=== PATIENT | male | born 1945 ===

== ENCOUNTER 2020-04-25 07:57 | Outpatient (REF) | payer MEDICARE, SELFPAY | END 2020-04-25 07:58 | disposition home or self-care (01) | LOC: HO.HAP 07:57 | PROVIDERS: Visit Provider Internal Medicine | DX: Z13.89 Encounter for screening for other disorder (principal) | CPT/HCPCS: 92700 ==

== ENCOUNTER → 2020-08-06 09:21 | Outpatient (BNV) | payer MEDICARE, SELFPAY | PROVIDERS: Visit Provider Internal Medicine Medical Oncology | DX: I82.403 Acute embolism and thrombosis of unspecified deep veins of lower extremity, bilateral (principal) | CPT/HCPCS: 99212; 99213; 99214 ==

== ENCOUNTER 2021-01-08 10:20 | Outpatient (REF) | payer MEDICARE, SELFPAY | END 2021-01-08 10:21 | disposition home or self-care (01) | LOC: HO.LAB 10:20 | PROVIDERS: Internal Medicine; Visit Provider Internal Medicine Medical Oncology | DX: Z20.822 Contact with and (suspected) exposure to COVID-19 (principal) | CPT/HCPCS: C9803; U0003; U0005 ==

== ENCOUNTER 2021-06-10 09:54 | Outpatient (REF) | payer MEDICARE, SELFPAY ==
--- NOTE | ~2021-06-10 | US_ITS ---
EXAMINATION: US VENOUS ULTRASOUND WITH DOPPLER LOWER EXTREMITY, BILATERAL CLINICAL INFORMATION: Swelling and skin changes. Follow-up DVT. COMPARISON: Previous exam most recent March 2017. TECHNIQUE: Ultrasound of the deep veins is performed from the hip to the calf with compression sonography and color and pulse Doppler assessment. Spectral analysis with color-flow imaging is performed. FINDINGS: RIGHT: There is linear echogenic material seen in the right common femoral vein suggestive of chronic changes from DVT. The visualized right greater saphenous vein in the upper thigh is patent. The visualized profunda in the upper thigh is patent. The right superficial femoral vein is narrowed in the proximal thigh but patent. The right superficial femoral vein is duplicated in the mid thigh and lower. One mid superficial femoral vein appears occluded and filled with echogenic material suggestive of old DVT. The other duplicated mid and distal superficial femoral vein demonstrates linear echogenic material suggestive of chronic changes of DVT. There is linear echogenic material in the popliteal vein suggestive of chronic changes from DVT. The right posterior tibial and peroneal veins are patent. LEFT: There is linear echogenic material seen in the left common femoral vein suggestive of chronic changes from DVT. The left greater saphenous vein in the upper thigh is patent. The visualized profunda in the upper thigh is patent. There is linear echogenic material seen in the left superficial femoral vein in the upper thigh suggestive of chronic changes from DVT. The left superficial femoral vein in the mid thigh appears narrowed but patent. The superficial femoral vein in the distal thigh demonstrates linear echogenic material suggestive of chronic changes from DVT. The left popliteal vein is patent. The visualized left posterior tibial and peroneal veins in the calf appear patent. US/US venous duplex LE BI IMPRESSION: Chronic changes of DVT in the bilateral common femoral and superficial femoral veins and the right popliteal vein. No acute DVT is seen.
== END 2021-06-10 09:55 | disposition home or self-care (01) ==
LOC: HO.US 09:54
PROVIDERS: Visit Provider Internal Medicine Medical Oncology
DX: Z86.718 Personal history of other venous thrombosis and embolism (principal)
CPT/HCPCS: 93970

== ENCOUNTER → 2022-01-01 14:17 | Outpatient (BNVA) | payer MEDICARE, SELFPAY | PROVIDERS: PCP Internal Medicine; Visit Provider Surgery Vascular Surgery | DX: Z86.718 Personal history of other venous thrombosis and embolism (principal); Z79.01 Long term (current) use of anticoagulants | CPT/HCPCS: 99202 ==

== ENCOUNTER 2022-01-13 14:01 | Outpatient (REF) | payer OTHER, SELFPAY ==
[2022-01-13 15:18] LABS: Blood Urea Nitrogen 20 mg/dL (9-16); Estimated Glomerular Filt Rate > 60
== END 2022-01-13 14:02 | disposition home or self-care (01) ==
LOC: HO.LAB 14:01
PROVIDERS: Visit Provider Surgery Vascular Surgery
DX: I82.409 Acute embolism and thrombosis of unspecified deep veins of unspecified lower extremity (principal)
CPT/HCPCS: 36415; 82565; 84520

== ENCOUNTER 2022-01-16 08:39 | Outpatient (REF) | payer OTHER, SELFPAY ==
--- NOTE | ~2022-01-16 | CT_ITS ---
STUDY PERFORMED: CTA ABDOMEN AND PELVIS WITHOUT AND WITH CONTRAST HISTORY: Lower extremity swelling and pain. History of bilateral lower extremity deep venous thrombosis DESCRIPTION: Routine abdomen and pelvis CTA protocol with contrast was performed. 80 mL of Omnipaque 350 was administered. 3D POSTPROCESSING: Multiple 3-D angiographic images were processed from the initial data set by the [facility] under concurrent physician supervision. DOSE LOWERING TECHNIQUES: This CT examination was performed using dose optimization techniques as appropriate, variously including the following: - Automated exposure control - Adjustment of mA and/or kV according to patient size (this includes techniques or standardized protocols for targeted exams where dose is matched to indication/reason for exam; i.e. extremities or head) - Use of iterative reconstruction technique DLP: 284 mGycm. COMPARISON: CT scan from 05/10/2019 FINDINGS: VASCULAR: ABDOMINAL AORTA: Normal in caliber and patent. No evidence of aneurysm or stenosis. RIGHT LOWER EXTREMITY: Common iliac, external iliac, internal iliac and visualized femoral arteries are patent. LEFT LOWER EXTREMITY: Common iliac, external iliac, internal iliac and visualized femoral arteries are patent. CELIOMESENTERIC ARTERIES: Patent. RENAL ARTERIES: Patent. VENOUS: Arterial phase images are obtained and therefore venous opacification is limited. Note is made of a small, scarred down and calcified portions of the right external iliac vein, left common iliac vein and left external iliac vein consistent with chronic thrombosis. There are multiple collateral veins along the bilateral anterior and lateral abdominal wall NONVASCULAR: Lung Bases: Atelectasis in the right lung base. Liver, Gallbladder and Biliary Tree: The liver is normal in size, shape, and attenuation. No focal hepatic lesion or biliary ductal dilatation is present. Status post cholecystectomy Pancreas: Unremarkable. Spleen: Unremarkable. Adrenal Glands: Unremarkable. Kidneys and Ureters: The kidneys are normal in size, shape, and attenuation. No hydronephrosis, hydroureter, or calculi seen. No perinephric stranding. There is a simple cyst in the lower pole of the right kidney measuring 2.1 cm Bladder: Unremarkable. Gastrointestinal Tract: The small and large bowel are unremarkable. The appendix is unremarkable. Abdominal Wall: No significant hernia is appreciated. Lymph Nodes: Normal. Pelvic Viscera: Unremarkable. Osseous Structures: Old compression fracture with kyphoplasty cement is seen within the T12 vertebral body. 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 Arterial phase images demonstrates some mild scattered atherosclerotic plaque in the abdominal aorta with otherwise widely patent arterial flow throughout the abdomen and pelvis. 2. Venous structures are unopacified due to arterial phase of imaging. The right external iliac vein, left common iliac vein and left external iliac vein are small in size with calcification consistent with chronic thrombosis. Collateral veins are seen throughout the anterior abdominal wall. This is grossly unchanged in appearance compared to CT from 2019
[2022-01-16] MEDS: iohexoL 350 MG/ML 100 ML INFUS..BTL IV (09:19)
== END 2022-01-16 08:40 | disposition home or self-care (01) ==
LOC: HO.CT 08:39
PROVIDERS: Visit Provider Surgery Vascular Surgery
DX: I82.409 Acute embolism and thrombosis of unspecified deep veins of unspecified lower extremity (principal)
CPT/HCPCS: 74174; Q9967

== ENCOUNTER → 2022-01-27 15:32 | Outpatient (BNVA) | payer OTHER, SELFPAY | PROVIDERS: PCP Internal Medicine; Visit Provider Surgery Vascular Surgery | DX: I82.409 Acute embolism and thrombosis of unspecified deep veins of unspecified lower extremity (principal) | CPT/HCPCS: 99212 ==

== ENCOUNTER 2022-02-04 05:55 | Day surgery (SDC) | payer OTHER, SELFPAY ==
[2022-02-04] VITALS (10 sets, daily range): BP systolic 138–153; BP diastolic 63–76; PULSE 65–74; RESP 14–17; TEMP 36.2–36.6; O2SAT 94–98; BMI 35.3
[2022-02-04 06:42] LABS: MANUAL DIFF FLAG NO
[2022-02-04 06:44] LABS: Basophils Absolute Auto 0.1 X10*3/uL (0.0-0.2); Basophils Percent Auto 1.1 % (0-2); Eosinophils Absolute Auto 0.2 X10*3/uL (0.0-0.4); Eosinophils Percent Auto 3.8 % (0-4); Hemoglobin 13.1 g/dl (14.0-18.0); Imm Gran Abs Auto 0.01 X10*3/uL (0.00-0.03); Imm Gran Pct Auto 0.2 % (0.0-0.4); Lymphocytes Absolute Auto 1.8 X10*3/uL (1.2-4.9); Lymphocytes Percent Auto 38.2 % (20-40); Mean Corpuscular HGB Conc 32.8 g/dl (31.0-36.0); Mean Corpuscular Hemoglobin 29.6 pg (27.0-33.0); Mean Corpuscular Volume 90.5 fL (80.0-98.0); Mean Platelet Volume 10.3 fL (9.4-12.4); Monocytes Absolute Auto 0.6 X10*3/uL (0.1-1.2); Monocytes Percent Auto 11.7 % (2-11); Neutrophils Absolute Auto 2.1 x10*3/uL (2.0-8.3); Platelet Count 202 X10*3/uL (160-400); Red Blood Count 4.42 X10*6/uL (4.60-5.80); Red Cell Distribution Width 12.2 % (11.0-16.0); White Blood Count 4.7 X10*3/uL (4.8-10.8)
[2022-02-04] MEDS: 0.9 % Sodium Chloride 1,000 ML 100 ML IVCONT (06:54)
[2022-02-04 06:55] LABS: Glucose, Whole Blood 184 mg/dL (60-115)
[2022-02-04 06:57] LABS: Blood Urea Nitrogen 18 mg/dL (9-16); Creatinine Clr Calc Pharmacy 65.2; Estimated Glomerular Filt Rate > 60
--- NOTE | 2022-02-04 09:33 | W.PM.OPN ---
Operative Note Operative Note Date of Service: 02/04/22 Narrative: Angiogram report from [facility] Preoperative diagnosis: 1. Left iliac vein stenosis 2. DVT Postoperative diagnosis: Same Procedure: 1. Ultrasound-guided left common femoral vein access 2. vena cavogram and left iliac vein imaging 3. angioplasty and stent of left common iliac and external iliac vein Surgeon:Mark Serra M.D., FACS, RPVI Medicaid Billing Specialist:None Anesthesia: Local with moderate conscious sedation. Total intraservice moderate sedation time was 70 minutes. I monitored the patient's level of consciousness and physiologic status continuously throughout the procedure. Specimens:none Drains:none Estimated blood loss: Less than 10 ml Implant: Abre venous stent 14 x 120 Indications: very pleasant 76-year-old gentleman with a history of DVT and chronic venous insufficiency. He had evidence a CPAP 5 with healed ulceration. He has chronic swelling of the right and left lower extremity. On CT venogram was discovered that he had stenotic iliac system. He now presents for endovascular intervention. The patient has signed the informed consent after reviewing risks, complications, benefits, and alternatives previously discussed with the patient. The patient was given the opportunity to ask any additional questions or voice any concerns. All questions were answered to the patient's satisfaction. Procedure in detail: Patient was brought to the angiography suite prior to which a time-out was called for patient identification and site verification. Bilateral groins were prepped and draped in the standard surgical fashion. Under ultrasound guidance Left common femoral vein was punctured with micro puncture needle and wire. Subsequently a precision 5 [place]an sheath was then placed. Bentson wire was advanced to the level of the aorta. 5 [place] Flush catheter was brought up to the level of the inferior vena cava after some manipulation. Of note and 035 glidewire had to be used to advanced to this level.. Vena cavogram was then undertaken. Catheter was brought down to the level of the iliac bifurcation. Iliacs were subsequently imaged. through the left femoral sheath we under took multiple orthogonal views and images. we then administered 3000 units of systemic heparin. We advanced an 035 glidewire Advantage. We then upsized to an 8 [place]an sheath. Once this was accomplished we 1st plasty the entire length of the iliac vein with a 8 by 40 balloon then subsequently plasty this with a 10 x 60 balloon and finally we plasty did with a 12 x 60 balloon which required to subsequent insufflations. we then took additional views. We brought up a abre 14 x 120 venous stent. This was deployed into position. Subsequent to this we plasty this with a 12 x 60 balloon. Once this was all accomplished completion venogram demonstrated excellent result. Catheter wire sheath were removed. 10 minutes of direct pressure was held. Adequate hemostasis was achieved. Patient was returned to recovery with stable vitals. Interpretation of films: 1. Ultrasound demonstrates appropriate femoral vein puncture. Image of which was saved. 2. vena cavogram demonstrated no significant stenosis or disease no evidence of thrombosis vena cava measured less than 3 cm in size. 3. Iliac Vein demonstrated complete occlusion from the confluence of the vena cava on down to the external iliac vein. Completion vena cavogram demonstrated excellent flow through the entire left iliac tree. Conclusion: 1. Successful left common iliac and external iliac vein plasty and stent 2. Anticoagulation status: resume Xarelto This note is constructed using voice recognition software. While every effort has been made to ensure accuracy, water operator errors may have been included. Thank you for allowing me to participate in the care of your patient. Yours sincerely, Mark Serra MD, FACS, R.P.V.I.
[2022-02-04] MEDS: Acetaminophen 325 MG TABLET 650 MG PO (09:52)
== END 2022-02-04 13:00 | disposition home or self-care (01) ==
PROVIDERS: Visit Provider Surgery Vascular Surgery
DX: I82.422 Acute embolism and thrombosis of left iliac vein (principal); I10 Essential (primary) hypertension; E78.00 Pure hypercholesterolemia, unspecified; E11.9 Type 2 diabetes mellitus without complications; Z79.01 Long term (current) use of anticoagulants; Z79.84 Long term (current) use of oral hypoglycemic drugs; Z79.899 Other long term (current) drug therapy; Z87.891 Personal history of nicotine dependence
CPT/HCPCS: 36415; 37221; 76937; 82565; 82947; 84520; 85025; 99152; 99153; C1725; C1769; C1887; J2250; J3010; Q9967

== ENCOUNTER 2022-02-19 10:10 | Outpatient (REF) | payer OTHER, SELFPAY | END 2022-02-19 10:11 | disposition home or self-care (01) | LOC: HO.HAP 10:10 | PROVIDERS: Visit Provider Internal Medicine | DX: Z01.118 Encounter for examination of ears and hearing with other abnormal findings (principal); H90.3 Sensorineural hearing loss, bilateral | CPT/HCPCS: 99212 ==

== ENCOUNTER 2022-03-04 05:50 | Day surgery (SDC) | payer OTHER, SELFPAY ==
[2022-03-04] VITALS (9 sets, daily range): BP systolic 100–165; BP diastolic 50–84; PULSE 62–97; RESP 16–18; TEMP 36.3; O2SAT 95–97; BMI 33.9
[2022-03-04 06:27] LABS: MANUAL DIFF FLAG NO
[2022-03-04 06:46] LABS: Basophils Percent Auto 0.8 % (0-2); Eosinophils Absolute Auto 0.2 X10*3/uL (0.0-0.4); Eosinophils Percent Auto 2.9 % (0-4); Hematocrit 39.5 % (42.0-52.0); Hemoglobin 13.1 g/dl (14.0-18.0); Imm Gran Abs Auto 0.01 X10*3/uL (0.00-0.03); Imm Gran Pct Auto 0.2 % (0.0-0.4); Lymphocytes Absolute Auto 1.9 X10*3/uL (1.2-4.9); Lymphocytes Percent Auto 37.6 % (20-40); Mean Corpuscular HGB Conc 33.2 g/dl (31.0-36.0); Mean Corpuscular Hemoglobin 30.1 pg (27.0-33.0); Mean Corpuscular Volume 90.8 fL (80.0-98.0); Mean Platelet Volume 10.4 fL (9.4-12.4); Monocytes Absolute Auto 0.5 X10*3/uL (0.1-1.2); Monocytes Percent Auto 10.5 % (2-11); Neutrophils Absolute Auto 2.5 x10*3/uL (2.0-8.3); Platelet Count 183 X10*3/uL (160-400); Red Blood Count 4.35 X10*6/uL (4.60-5.80); Red Cell Distribution Width 11.9 % (11.0-16.0); White Blood Count 5.1 X10*3/uL (4.8-10.8)
[2022-03-04 06:46] LABS: Glucose, Whole Blood 158 mg/dL (60-115)
[2022-03-04 06:56] LABS: Blood Urea Nitrogen 19 mg/dL (9-16); Creatinine Clr Calc Pharmacy 67.8; Estimated Glomerular Filt Rate > 60
--- NOTE | 2022-03-04 09:32 | W.PM.OPN ---
Operative Note Operative Note Date of Service: 03/04/22 Narrative: Angiogram report from [facility] Preoperative diagnosis: Central venous occlusion Postoperative diagnosis: Same Procedure: 1. Ultrasound-guided right common femoral access 2. Vena cavogram 3. Right iliac vein stent Surgeon:Mark Serra M.D., FACS, RPVI Online Merchandising Manager:None Anesthesia: Local with moderate conscious sedation. Total intraservice moderate sedation time was 57 minutes. I monitored the patient's level of consciousness and physiologic status continuously throughout the procedure. Specimens:none Drains:none Estimated blood loss: Less than 10 ml Implant: Abre 14 x 120 stent Indications: Pleasant 76-year-old gentleman presents for venous occlusion. He had a prior left venous stent which demonstrated improvement of his left leg he now presents for right lower extremity The patient has signed the informed consent after reviewing risks, complications, benefits, and alternatives previously discussed with the patient. The patient was given the opportunity to ask any additional questions or voice any concerns. All questions were answered to the patient's satisfaction. Procedure in detail: Patient was brought to the angiography suite prior to which a time-out was called for patient identification and site verification. Bilateral groins were prepped and draped in the standard surgical fashion. Under ultrasound guidance right common femoral was punctured with micro puncture needle and wire. Subsequently a precision 4 [place] sheath was then placed. Glidewire Advantage was brought up to the central vena cava. 4 [place] Flush catheter was brought into the vena cava and vena cavogram was then undertaken. Catheter was brought down to the level of the iliac bifurcation. Iliacs were subsequently imaged. It was recognized that he had a central venous occlusion. We then upsized to a 9 [place] sheath. 5000 units of systemic heparin was administered after 5 minutes of circulation time we plasty the right iliac vein with an 8 x 60 balloon. We subsequently followed this up with a 12 x 60 balloon which required multiple insufflations. This demonstrated a fairly good result we finally brought in abre 14 x 120 stent. This was deployed from the venous bifurcation down in to the external iliac vein. Once deployed we followed this up with a 12 x 60 balloon. Completion vena cavogram demonstrated excellent result. Catheter wire sheath was removed. 10 minutes of direct pressure was held. Patient tolerated the procedure well. Returned to recovery with stable vitals. Interpretation of films: 1. Ultrasound demonstrates appropriate femoral puncture. Image of which was saved. 2. Vena cavogram demonstrated no central venous disease 3. Iliac images demonstrate total occlusion of right iliac vein 4. Completion image demonstrated good flow through the right iliac vein Conclusion: 1. Successful right iliac venous stent placement 2. Anticoagulation status: Resume Xarelto tomorrow This note is constructed using voice recognition software. While every effort has been made to ensure accuracy, digital ad trafficker errors may have been included. Thank you for allowing me to participate in the care of your patient. Yours sincerely, Mark Serra MD, FACS, R.P.V.I.
[2022-03-04] MEDS: iohexoL 300 MG/ML 100 ML INFUS..BTL IV (13:41)
== END 2022-03-04 12:51 | disposition home or self-care (01) ==
PROVIDERS: Visit Provider Surgery Vascular Surgery
DX: I82.421 Acute embolism and thrombosis of right iliac vein (principal); I73.9 Peripheral vascular disease, unspecified; I10 Essential (primary) hypertension; E78.00 Pure hypercholesterolemia, unspecified; E11.9 Type 2 diabetes mellitus without complications; I49.9 Cardiac arrhythmia, unspecified; Z86.718 Personal history of other venous thrombosis and embolism; Z79.01 Long term (current) use of anticoagulants; Z79.4 Long term (current) use of insulin; Z79.51 Long term (current) use of inhaled steroids; Z79.899 Other long term (current) drug therapy; Z87.891 Personal history of nicotine dependence
CPT/HCPCS: 36415; 37185; 37238; 76937; 82565; 82947; 84520; 85025; 99152; 99153; C1725; C1769; C1876; C1887; J2250; J3010; Q9967

== ENCOUNTER → 2022-03-19 14:50 | Outpatient (BNVA) | payer OTHER, SELFPAY | PROVIDERS: Visit Provider Surgery Vascular Surgery | DX: I82.403 Acute embolism and thrombosis of unspecified deep veins of lower extremity, bilateral (principal) | CPT/HCPCS: 99212 ==

== ENCOUNTER 2022-06-17 10:05 | Outpatient (REF) | payer OTHER, SELFPAY ==
--- NOTE | ~2022-06-17 | US_ITS ---
EXAMINATION: US LOWER EXTREMITY VENOUS (REFLUX EXAM), BILATERAL CLINICAL INDICATION: Chronic venous insufficiency. History of bilateral iliac vein stenting and chronic deep venous thrombosis COMPARISON: Ultrasound 06/10/2021 TECHNIQUE: Color flow triplex imaging and compression Doppler was performed to evaluate both the deep and the superficial systems bilaterally. To evaluate the superficial system, the examination was performed in the upright position. Color-flow Doppler ultrasound and compression ultrasound were utilized. In addition, maneuvers were utilized to demonstrate reflux. FINDINGS: 1. DEEP VENOUS ULTRASOUND OF THE RIGHT LOWER EXTREMITY: Common Femoral Vein: Partially compressible with chronic wall thickening and chronic thrombus with minimal recanalized flow. No significant change compared to the prior exam Femoral Vein: Partially compressible with chronic wall thickening and chronic thrombus with minimal recanalized flow in the proximal segment and occlusion in the mid to distal segment. No significant change compared to the prior exam Popliteal Vein: Compressible, normal augmentation. Deep Reflux: There is reflux in the popliteal vein measuring 1368 ms There is no evidence of a Gilbert's cyst. 2. SUPERFICIAL ULTRASOUND WITH DOPPLER OF RIGHT LOWER EXTREMITY: GREAT SAPHENOUS VEIN: Saphenofemoral Junction: 0.9 cm; Reflux: 0 ms Proximal Thigh: 0.7 cm; Reflux: 0 ms Mid Thigh: 0.4 cm; Reflux: 0 ms Above Knee: 0.5 cm; Reflux: 1728 ms At Knee: 0.6 cm; Reflux: 0 ms Below Knee: 0.5 cm; Reflux: 1516 ms Mid Calf: 0.4 cm; Reflux: 0 ms Ankle: 0.4 cm; Reflux: 0 ms DUPLICATED MEDIAL GREAT SAPHENOUS VEIN: Diameter: None Imaged Reflux: NA DUPLICATED LATERAL GREAT SAPHENOUS VEIN: Diameter: 0.3 cm Reflux: None SMALL SAPHENOUS VEIN: Proximal: 0.3 cm; Reflux: 0 ms Distal: 0.3 cm; Reflux: 0 ms VEIN OF GIACOMINI: None Imaged. PERFORATORS: Location: Thigh, proximal calf and mid calf Size: 0.3 to 0.5 cm Reflux: 1112 ms within the thigh medical editor VARICOSITIES: Location: Proximal thigh, knee and proximal calf Size: 0.3 to 0.5 cm Reflux: 620 ms to 1640 ms 3. DEEP VENOUS ULTRASOUND OF THE LEFT LOWER EXTREMITY: Common Femoral Vein: Partially compressible with chronic wall thickening and chronic thrombus with mild recanalized flow. No significant change compared to the prior exam Femoral Vein: Partially compressible with chronic wall thickening and chronic thrombus with minimal recanalized flow in the proximal and mid segment and occlusion in the distal segment. No significant change compared to the prior exam. Popliteal Vein: Compressible, normal augmentation. Deep Reflux: There is no evidence of reflux in the deep system in either the common femoral vein or the popliteal vein. There is no evidence of a Gilbert's cyst. 4. SUPERFICIAL ULTRASOUND WITH DOPPLER OF LEFT LOWER EXTREMITY: GREAT SAPHENOUS VEIN: Saphenofemoral Junction: 0.9 cm; Reflux: 0 ms Proximal Thigh: 0.9 cm; Reflux: 0 ms Mid Thigh: 1.6 cm; Reflux: 1048 ms Above Knee: 0.6 cm; Reflux: 1540 ms At Knee: 0.5 cm; Reflux: 0 ms Below Knee: 0.5 cm; Reflux: 0 ms Mid Calf: 0.5 cm; Reflux: 636 ms Ankle: 0.5 cm; Reflux: 608 ms DUPLICATED MEDIAL GREAT SAPHENOUS VEIN: Diameter: None Imaged Reflux: NA DUPLICATED LATERAL GREAT SAPHENOUS VEIN: Diameter: None Imaged Reflux: NA SMALL SAPHENOUS VEIN: Proximal: 0.3 cm; Reflux: 0 ms Distal: 0.3 cm; Reflux: 0 ms VEIN OF GIACOMINI: None Imaged. PERFORATORS: Location: None Imaged Size: NA Reflux: NA VARICOSITIES: Location: Proximal thigh: Distal thigh and midcalf Size: 0.3 to 0.7 cm Reflux: None US/US venous duplex LE BI IMPRESSION: Right: Chronic deep venous thrombosis with partial to total occlusion within the common femoral vein and superficial femoral vein which is unchanged compared to the prior exam. The great saphenous vein demonstrates focal areas of reflux within the distal thigh and proximal calf. Multiple varicosities seen as described above Left: Chronic deep venous thrombosis with partial to total occlusion within the common femoral vein and superficial femoral vein which is unchanged compared to the prior exam. The great saphenous vein demonstrates focal areas of reflux within the thigh and calf. Multiple varicosities seen as described above
== END 2022-06-17 10:06 | disposition home or self-care (01) ==
LOC: HO.US 10:05
PROVIDERS: Visit Provider Surgery Vascular Surgery
DX: I82.403 Acute embolism and thrombosis of unspecified deep veins of lower extremity, bilateral (principal)
CPT/HCPCS: 93970

== ENCOUNTER → 2022-07-02 15:05 | Outpatient (BNVA) | payer OTHER, SELFPAY | PROVIDERS: PCP Internal Medicine; Visit Provider Surgery Vascular Surgery | DX: I82.403 Acute embolism and thrombosis of unspecified deep veins of lower extremity, bilateral (principal); E11.9 Type 2 diabetes mellitus without complications; I10 Essential (primary) hypertension; E78.00 Pure hypercholesterolemia, unspecified; Z95.820 Peripheral vascular angioplasty status with implants and grafts | CPT/HCPCS: 99212 ==

== ENCOUNTER 2022-11-21 18:29 | Emergency (ER) | payer OTHER, SELFPAY ==
--- NOTE | ~2022-11-21 | XR_ITS ---
EXAMINATION: XR CHEST CLINICAL INFORMATION: Weakness COMPARISON: None available. TECHNIQUE: 2 views of the chest were obtained. FINDINGS: No significant abnormality is noted involving the heart, lungs, mediastinum, bony thorax or soft tissues. XR/XR chest 2V IMPRESSION: Unremarkable chest examination.
--- NOTE | ~2022-11-21 | US_ITS ---
EXAMINATION: US VENOUS ULTRASOUND WITH DOPPLER LOWER EXTREMITY, BILATERAL CLINICAL INFORMATION: Pain. COMPARISON: Ultrasound venous duplex bilateral lower extremity 06/25/2022. TECHNIQUE: Ultrasound of the deep veins is performed from the hip to the calf with compression sonography and color and pulse Doppler assessment. Spectral analysis with color-flow imaging is performed. FINDINGS: RIGHT: There is is a chronic clot seen in the common femoral and superficial femoral veins from proximal distal and popliteal vein. There is flow identified within these veins and the clot appears improved compared to previous study from . The posterior tibial vein is patent. The peroneal vein is not optimally visualized. There is no Gilbert's cyst. LEFT: There are chronic clot visualized in the common femoral, superficial femoral veins. The clot appears improved since the previous study there are numerous varicose veins with thrombus visualized, new since the last study. The left peroneal and the posterior tibial vein are patent. There is no Gilbert's cyst. If the patient's symptoms persist, followup ultrasound in 5 days 7 days might be of value to exclude proximal propagation from a non-visualized calf vein. US/US venous duplex LE IMPRESSION: Chronic DVT visualized in both common femoral and superficial femoral veins including right popliteal vein. There is flow however visualized in these veins. The clot is improved as well since the 2021 exam. Below-knee veins are patent as described above. There are varicose veins below knee and left calf with thrombus present suggestive of superficial thrombophlebitis. The clot is new.
--- NOTE | ~2022-11-21 | XR_ITS ---
EXAMINATION: XR PELVIS CLINICAL INFORMATION: Pelvic pain COMPARISON: Selected images of the abdomen and pelvic CT scan of 01/16/2022 TECHNIQUE: Pelvis 1 view. AP view of the pelvis. FINDINGS: Femoral heads are well seated in the expected acetabula. Hip joint spaces are preserved. No degenerative or arthritic changes are noted at the bilateral hip joints. Symphysis pubis is intact and unremarkable. Limited evaluation the sacroiliac joints is unremarkable. Bilateral vascular stents are noted in the course of the common iliac vessels, recommend correlation with nature of the procedure. The findings are new compared to previous CT. There is mild overpenetration over the region of the most lateral aspects of the bilateral iliac bones. Considering this limitation there is no evidence of suspicious lytic or blastic osseous lesions. Mild changes of enthesopathy at bilateral ischial tuberosities. XR/XR pelvis 1-2V IMPRESSION: No acute or significant osseous abnormalities of the pelvis are demonstrated.
[2022-11-21 18:33] VITALS: BP 170/80; BP 179/77; PULSE 88; PULSE 94; RESP 16; TEMP 37.9; O2SAT 95; O2SAT 97; BMI 33.7
[2022-11-21 18:40] VITALS: BP 179/77; PULSE 82; RESP 12; TEMP 37.9; O2SAT 95
--- NOTE | 2022-11-21 19:11 | ED.GENADULT ---
HPI - General Adult General Chief complaint: General Medical Stated complaint: BODY PAIN, NO FALL/INJURY Time Seen by Provider: 11/21/22 18:38 Source: patient, RN notes reviewed and old records reviewed Mode of arrival: EMS Limitations: no limitations History of Present Illness HPI narrative: Them 7-year-old male with past medical history significant for hypertension, hyperlipidemia, DVT on Xarelto presents for evaluation of body aches. Patient reports lower back pain, hip pain that radiates down his leg since yesterday Reports history of similar. He has been compliant with his Xarelto. He reports he is arthritis in both of his hips He denies any other complaints or concerns including fevers, chills, cough, shortness of breath, abdominal pain nausea vomiting or diarrhea Denies any difficulty urinating, blood in the urine or frequent urination Related Data Home Medications Medication Instructions Recorded Confirmed albuterol sulfate 90 mcg/actuation 2 puff inhalation Q4H PRN wheezing 08/06/20 06/08/22 aerosol inhaler (Ventolin HFA) atorvastatin 40 mg tablet 1 tab PO DAILY 08/06/20 06/08/22 digoxin 125 mcg (0.125 mg) tablet 1 tab PO DAILY 08/06/20 06/08/22 docusate sodium 100 mg capsule 1 cap PO BID 08/06/20 06/08/22 fluticasone propionate 44 1 puff PO BID 08/06/20 06/08/22 mcg/actuation HFA aerosol inhaler (Flovent HFA) fluticasone propionate 50 1 spray intranasal BID PRN Nasal 08/06/20 06/08/22 mcg/actuation nasal Congestion spray,suspension insulin glargine 100 unit/mL (3 27 - 29 unit subcut BEDTIME 08/06/20 06/08/22 mL) subcutaneous pen (Basaglar KwikPen U-100 Insulin) isosorbide mononitrate 30 mg 30 mg PO DAILY 08/06/20 06/08/22 tablet,extended release 24 hr lisinopril 5 mg tablet 1 tab PO DAILY 08/06/20 06/08/22 metformin 500 mg tablet 2 tab PO BID 08/06/20 06/08/22 omeprazole 20 mg capsule,delayed 1 cap PO DAILY 08/06/20 06/08/22 release ropinirole 0.25 mg tablet 2 tab PO BEDTIME 08/06/20 06/08/22 dulaglutide 0.75 mg/0.5 mL 0.75 mg subcut QWEEK 06/05/21 06/08/22 subcutaneous pen injector (Trulicity) Previous Rx's Medication Instructions Recorded rivaroxaban 20 mg tablet (Xarelto) 1 tab PO DAILY #90 tabs 10/20/22 oxycodone-acetaminophen 5 mg-325 1 tab PO Q6H PRN severe pain 11/21/22 mg tablet (Percocet) (scale score 7-10) #12 tabs Allergies Allergy/AdvReac Type Severity Reaction Status Date / Time No Known Allergies Allergy Verified 07/02/22 15:10 Review of Systems Constitutional: Constitutional: Reports as per HPI, Reports body ache(s), Denies chills, Denies fatigue, Denies fever(s) and Denies headache(s) ENT: Denies headache(s) Cardiovascular: Cardiovascular: Denies chest pain and Denies dyspnea Respiratory: Respiratory: Denies cough and Denies dyspnea Gastrointestinal: Gastrointestinal: Denies abdominal pain, Denies constipation and Denies vomiting Genitourinary: Genitourinary: Denies difficulty urinating and Denies dysuria Integumentary/Breasts: Comments: Pain to bilateral extremities Neurologic: Denies headache(s) and Denies focal weakness Endocrine: Endocrine: Denies fatigue PMF Past Medical History Medical History Diabetes Dysrhythmias GERD (gastroesophageal reflux disease) History of DVT (deep vein thrombosis) Hypercholesteremia Hypertension S/P angiogram of extremity (03/04/22) Surgical History Hx of appendectomy Family History Family History Father No problems noted. Mother No problems noted. Other No family history of cancer Social History Social History Household Members: Spouse Housing: Apartment Are you a primary care team assistant to a significant other at home: No Do you presently have visiting nurse or other home services: No Alcohol intake: never Patient Tobacco Use Status: Former Tobacco user Tobacco use type: Cigarette Advance Directives: No Advance Directives Information Provided: Yes service: No Current occupational status: retired Physical Exam ED Vital Signs: Vital Signs - 24 hr 11/21/22 18:33 11/21/22 18:40 11/21/22 21:58 Temperature 100.3 F 100.3 F 101 F H Pulse Rate 94 82 95 Respiratory Rate 16 12 16 Blood Pressure 179/77 H 179/77 H 152/70 H Pulse Oximetry 95 95 96 Oxygen Delivery Method Room Air Room Air Room Air BMI result Body Mass Index 33.7 Const General: healthy appearing, comfortable, no acute distress, alert and awake Nutritional Appearance: well nourished Orientation/consciousness: patient oriented x3 HENMT Head: Yes normocephalic and Yes atraumatic Throat: Yes posterior oropharynx normal Eyes Eyelids: Yes eyelids normal Conjunctivae: conjunctivae normal Sclerae: sclerae normal Corneas: corneas normal Pupils: Equal, round and reactive pupils present EOM: EOMs intact bilaterally Neck Neck: Yes full ROM Resp Effort & Inspection: normal respiratory effort, able to speak in complete sentences, no audible wheezes and not labored Auscultation: clear to auscultation bilaterally Cardio Rate: regular rate Rhythm: regular rhythm GI Inspection: No distended Palpation (GI): Soft to palpation, not firm, nontender, no guarding and not rigid Auscultation: normoactive bowel sounds Skin Other: No rashes to lower extremities, no erythema or since edema. General skin exam: no rashes or lesions noted and elasticity normal Neuro General: patient oriented x3 Cranial nerves: Yes Equal, round and reactive pupils present and Yes Bilaterally intact EOM present Cognition (Neuro): normal cognition Extrem Other: Moving all extremities well without any obvious deformities. Bilateral calf tenderness, negative Homans sign bilaterally. Course Reevaluation(s) Reevaluation #1: Patient's labs and images discussed with the patient, no acute findings. He does have chronic DVTs in both lower extremity is that still has blood flow. The blood clots are actually improved since previous ultrasound. He reports feeling better after oxycodone but still has some mild pain will give another dose. Still awaiting UA. No evidence of ischemic limb. The patient's temperature is elevated to 101. No clear source at this time. Patient has no evidence of skin infections. We are still awaiting the UA as previously mentioned, this could be the source. He will given Tylenol for his fever Time: 21:54 Reevaluation #2: Patient's urine does not appear to be the source of infection. It is possible that he has a viral illness. On re-examination, the patient has no further complaints, his abdomen is soft, nontender. I again reviewed the review of systems to try and find any other symptoms to explain the source of infection. The patient denied any and all complaints except for his general body aches. We will treat the patient's discomfort. I had a long discussion with the patient and his family. He will treat his fever with ibuprofen and Tylenol, we have blood cultures pending. If he has any new or worsening symptoms, he will return to the ER for further evaluation. The patient is not septic, his vital signs are otherwise reassuring with the exception of his slight fever. Time: 22:28 Medications Administered Discontinued Medications Generic Name Dose Route Start Last Admin Trade Name Meera PRN Reason Stop Dose Admin Acetaminophen 975 mg 11/21/22 21:56 11/21/22 22:00 Acetaminophen 325 Mg Tablet PO 11/21/22 21:57 975 mg ONCE ONE Administration Oxycodone HCl 5 mg 11/21/22 18:45 11/21/22 19:17 Oxycodone Hcl Immed Release 5 Mg Tablet PO 11/21/22 18:46 5 mg ONCE ONE Administration Oxycodone HCl 5 mg 11/21/22 21:54 11/21/22 21:59 Oxycodone Hcl Immed Release 5 Mg Tablet PO 11/21/22 21:55 5 mg ONCE ONE Administration Medical Decision Making Medical Decision Making [facility] Narrative: Patient is well-appearing, he complains of bilateral leg pain. He has no objective findings on exam. Will check labs, ultrasound to rule out worsening DVT. Patient was noted a temperature 100.3?. He denies any fevers or chills. , blood cultures, lactic acid, chest x-ray, UA, viral panel to evaluate for source of elevated temperature. Differential Diagnosis Arthritis Chronic leg pain DVT Popliteal cyst Fever Viral syndrome Lab Data [facility] Lab Attestation statement: I reviewed the patient's lab results. 11/21/22 19:12 11/21/22 19:12 Labs: Lab Results 11/21/22 11/21/22 11/21/22 Range/Units 19:12 19:12 19:12 WBC 5.4 (4.8-10.8) X10*3/uL RBC 4.33 L (4.60-5.80) X10*6/uL Hgb 12.7 L (14.0-18.0) g/dl Hct 38.2 L (42.0-52.0) % MCV 88.2 (80.0-98.0) fL MCH 29.3 (27.0-33.0) pg MCHC 33.2 (31.0-36.0) g/dl RDW 13.6 (11.0-16.0) % Plt Count 188 (160-400) X10*3/uL MPV 10.6 (9.4-12.4) fL Immature Gran % (Auto) 0.2 (0.0-0.4) % Neut % (Auto) 60.4 (45-73) % Lymph % (Auto) 26.9 (20-40) % [place] % (Auto) 10.8 (2-11) % Eos % (Auto) 1.1 (0-4) % Baso % (Auto) 0.6 (0-2) % Lymph # (Auto) 1.4 (1.2-4.9) X10*3/uL [place] # (Auto) 0.6 (0.1-1.2) X10*3/uL Eos # (Auto) 0.1 (0.0-0.4) X10*3/uL Baso # (Auto) 0.0 (0.0-0.2) X10*3/uL Abs Immat Gran (auto) 0.01 (0.00-0.03) X10*3/uL Absolute Neuts (auto) 3.2 (2.0-8.3) x10*3/uL Absolute Nucleated RBC 0.000 (0.0-0.012) X10*3/uL Nucleated RBC % (auto) 0.0 (0.0-0.2) /100WBC Sodium 136 (135-145) mmol/L Potassium 4.6 (3.3-5.1) mmol/L Chloride 103 (96-108) mmol/L Carbon Dioxide 26 (22-29) mmol/L Anion Gap 12 (12-20) BUN 17 H (9-16) mg/dL Creatinine 1.12 (0.5-1.4) mg/dL Estim Creat Clear Calc 59.5 Estimated GFR > 60 Random Glucose 234 H (60-115) mg/dL Lactic Acid 1.9 (0.5-2.0) mmol/L Calcium 9.0 D (8.4-10.2) mg/dL Total Bilirubin 0.4 (0.0-1.0) mg/dL AST 24 (5-37) U/L ALT 20 (0-40) U/L Alkaline Phosphatase 81 (39-117) U/L Total Protein 6.6 (6.5-8.0) g/dL Albumin 3.7 (3.5-5.0) g/dL Lipase 38 (8-78) U/L Urine Color Urine Appearance Urine pH (5.0-9.0) Ur Specific [place] (1.005-1.025) Urine Protein (Neg-Trace) mg/dL Urine Glucose (UA) (Negative) mg/dL Urine Ketones (Negative) mg/dL Urine Blood (Negative) Urine Nitrite (Negative) Ur Leukocyte Esterase (Negative) Urine RBC (0-2) /HPF Urine WBC (0-5) /HPF Ur Squamous Epith Cells (0-2) /HPF Urine Bacteria (None Seen) Hyaline Casts (0-2) /LPF COVID-19 (DEMET[facility]O) (Negative) COVID-19 Clin Com Influenza Type A (MERLYN) (Negative) Influenza Type B (MERLYN) (Negative) Influenza A & B Note 11/21/22 11/21/22 11/21/22 Range/Units 19:18 19:18 21:46 WBC (4.8-10.8) X10*3/uL RBC (4.60-5.80) X10*6/uL Hgb (14.0-18.0) g/dl Hct (42.0-52.0) % MCV (80.0-98.0) fL MCH (27.0-33.0) pg MCHC (31.0-36.0) g/dl RDW (11.0-16.0) % Plt Count (160-400) X10*3/uL MPV (9.4-12.4) fL Immature Gran % (Auto) (0.0-0.4) % Neut % (Auto) (45-73) % Lymph % (Auto) (20-40) % [place] % (Auto) (2-11) % Eos % (Auto) (0-4) % Baso % (Auto) (0-2) % Lymph # (Auto) (1.2-4.9) X10*3/uL [place] # (Auto) (0.1-1.2) X10*3/uL Eos # (Auto) (0.0-0.4) X10*3/uL Baso # (Auto) (0.0-0.2) X10*3/uL Abs Immat Gran (auto) (0.00-0.03) X10*3/uL Absolute Neuts (auto) (2.0-8.3) x10*3/uL Absolute Nucleated RBC (0.0-0.012) X10*3/uL Nucleated RBC % (auto) (0.0-0.2) /100WBC Sodium (135-145) mmol/L Potassium (3.3-5.1) mmol/L Chloride (96-108) mmol/L Carbon Dioxide (22-29) mmol/L Anion Gap (12-20) BUN (9-16) mg/dL Creatinine (0.5-1.4) mg/dL Estim Creat Clear Calc Estimated GFR Random Glucose (60-115) mg/dL Lactic Acid (0.5-2.0) mmol/L Calcium (8.4-10.2) mg/dL Total Bilirubin (0.0-1.0) mg/dL AST (5-37) U/L ALT (0-40) U/L Alkaline Phosphatase (39-117) U/L Total Protein (6.5-8.0) g/dL Albumin (3.5-5.0) g/dL Lipase (8-78) U/L Urine Color Yellow Urine Appearance Clear Urine pH 6.5 (5.0-9.0) Ur Specific [place] 1.025 (1.005-1.025) Urine Protein 30 (1+) H (Neg-Trace) mg/dL Urine Glucose (UA) 250 H (Negative) mg/dL Urine Ketones Negative (Negative) mg/dL Urine Blood Negative (Negative) Urine Nitrite Negative (Negative) Ur Leukocyte Esterase Negative (Negative) Urine RBC 0-2 (0-2) /HPF Urine WBC 0-5 (0-5) /HPF Ur Squamous Epith Cells 0-2 (0-2) /HPF Urine Bacteria None Seen (None Seen) Hyaline Casts 0-2 (0-2) /LPF COVID-19 ([place]O) Negative (Negative) COVID-19 Clin Com See Note Influenza Type A (MERLYN) Negative (Negative) Influenza Type B (MERLYN) Negative (Negative) Influenza A & B Note See Note Radiology Impression Discussion of test interpretation with radiology: I have reviewed the radiologist's reading. Discharge Plan Discharge Clinical Impression: Fever, Chronic deep vein thrombosis (DVT) Patient Disposition: Home, Self-Care Instructions: Fever in Adults (ED) Additional Instructions: You have a fever, and at this point, I am unclear of what the source is. It is possible that you have a viral illness Your chest x-ray was clear, urine sample is clear and your blood work was reassuring Your ultrasound showed chronic a deep vein thrombosis but improved from the most recent ultrasound If you develop any new or worsening symptoms, return to the emergency room for re-evaluation. Prescriptions: New oxycodone-acetaminophen [Percocet] 5-325 mg tablet 1 tab PO Q6H PRN (Reason: severe pain (scale score 7-10)) Qty: 12 0RF Rx Instructions: Partial Fill upon patient request. No Action atorvastatin 40 mg tablet 1 tab PO DAILY metformin 500 mg tablet 2 tab PO BID isosorbide mononitrate 30 mg tablet extended release 24 hr 30 mg PO DAILY ropinirole 0.25 mg tablet 2 tab PO BEDTIME fluticasone propionate [Flovent HFA] 44 mcg/actuation HFA aerosol inhaler 1 puff PO BID docusate sodium 100 mg capsule 1 cap PO BID omeprazole 20 mg capsule,delayed release(DR/EC) 1 cap PO DAILY lisinopril 5 mg tablet 1 tab PO DAILY digoxin 125 mcg (0.125 mg) tablet 1 tab PO DAILY albuterol sulfate [Ventolin HFA] 90 mcg/actuation HFA aerosol inhaler 2 puff inhalation Q4H PRN (Reason: wheezing) fluticasone propionate 50 mcg/actuation spray,suspension 1 spray intranasal BID PRN (Reason: Nasal Congestion) insulin glargine [Basaglar KwikPen U-100 Insulin] 100 unit/mL (3 mL) insulin pen 27 - 29 unit subcut BEDTIME Trulicity 0.75 mg/0.5 mL Pen Injector 0.75 mg SUBCUT QWEEK Xarelto 20 mg tablet 1 tab PO DAILY Qty: 90 6RF Rx Instructions: Take 20 mg po daily
[2022-11-21] MEDS: oxyCODONE HCl Immed Release 5 MG TABLET PO ×2 (19:17→21:59)
[2022-11-21 19:18] LABS: MANUAL DIFF FLAG NO
--- NOTE | 2022-11-21 19:24 | PC.NURSE ---
20g IV placed in RAC, oxycodone administered per MAR
[2022-11-21 19:27] LABS: Lactic Acid 1.9 mmol/L (0.5-2.0)
[2022-11-21 19:35] LABS: Alanine Aminotransferase 20 U/L (0-40); Albumin Level 3.7 g/dL (3.5-5.0); Alkaline Phosphatase 81 U/L (39-117); Anion Gap 12 (12-20); Aspartate Amino Transferase 24 U/L (5-37); Bilirubin Total 0.4 mg/dL (0.0-1.0); Blood Urea Nitrogen 17 mg/dL (9-16); Carbon Dioxide 26 mmol/L (22-29); Chloride 103 mmol/L (96-108); Creatinine Clr Calc Pharmacy 59.5; Estimated Glomerular Filt Rate > 60; Glucose Random 234 mg/dL (60-115); Lipase 38 U/L (8-78); Potassium 4.6 mmol/L (3.3-5.1); Sodium 136 mmol/L (135-145); Total Protein 6.6 g/dL (6.5-8.0)
[2022-11-21 19:39] LABS: Basophils Percent Auto 0.6 % (0-2); Eosinophils Absolute Auto 0.1 X10*3/uL (0.0-0.4); Eosinophils Percent Auto 1.1 % (0-4); Hematocrit 38.2 % (42.0-52.0); Hemoglobin 12.7 g/dl (14.0-18.0); Imm Gran Abs Auto 0.01 X10*3/uL (0.00-0.03); Imm Gran Pct Auto 0.2 % (0.0-0.4); Lymphocytes Absolute Auto 1.4 X10*3/uL (1.2-4.9); Lymphocytes Percent Auto 26.9 % (20-40); Mean Corpuscular HGB Conc 33.2 g/dl (31.0-36.0); Mean Corpuscular Hemoglobin 29.3 pg (27.0-33.0); Mean Corpuscular Volume 88.2 fL (80.0-98.0); Mean Platelet Volume 10.6 fL (9.4-12.4); Monocytes Absolute Auto 0.6 X10*3/uL (0.1-1.2); Monocytes Percent Auto 10.8 % (2-11); Neutrophils Absolute Auto 3.2 x10*3/uL (2.0-8.3); Neutrophils Percent Auto 60.4 % (45-73); Platelet Count 188 X10*3/uL (160-400); Red Blood Count 4.33 X10*6/uL (4.60-5.80); Red Cell Distribution Width 13.6 % (11.0-16.0); White Blood Count 5.4 X10*3/uL (4.8-10.8)
[2022-11-21 19:39] LABS: COVID-19 Test Negative (Negative); IDNOW Serial# 08D9AD1C; IDNOW Serial# BCCEAD1C; Influenza A Negative (Negative); Influenza B2 Negative (Negative)
[2022-11-21 21:58] VITALS: BP 152/70; PULSE 95; RESP 16; TEMP 38.3; O2SAT 96
[2022-11-21] MEDS: Acetaminophen 325 MG TABLET 975 MG PO (22:00)
[2022-11-21 22:04] LABS: Appearance Urine Clear; Color Urine Yellow; Glucose Urine UA 250 mg/dL (Negative); Leukocyte Esterase Urine Negative (Negative); Nitrite Urine Negative (Negative); PH 6.5 (5.0-9.0); Specific Gravity - Urine 1.025 (1.005-1.025); UMIC TRIGGER UACC YES; Urine Blood Negative (Negative); Urine Ketones Negative (Negative); Urine Protein 30 (1+) mg/dL (Neg-Trace)
[2022-11-21 22:09] LABS: Bacteria Urine None Seen (None Seen); Hyaline Casts Urine 0-2 /LPF (0-2); RBC Urine 0-2 /HPF (0-2); Squamous Epithelial Cell Urine 0-2 /HPF (0-2); WBC Urine 0-5 /HPF (0-5)
== END 2022-11-21 22:44 | disposition home or self-care (01) ==
PROVIDERS: Physician Assistant; Emergency Provider Internal Medicine
DX: I82.511 Chronic embolism and thrombosis of right femoral vein (principal); I82.512 Chronic embolism and thrombosis of left femoral vein; R50.9 Fever, unspecified; Z20.822 Contact with and (suspected) exposure to COVID-19; I10 Essential (primary) hypertension; E78.5 Hyperlipidemia, unspecified; Z86.718 Personal history of other venous thrombosis and embolism; Z79.01 Long term (current) use of anticoagulants
CPT/HCPCS: 71046; 72170; 80053; 81001; 83605; 83690; 85025; 87040; 87502; 87635; 93970; 99284

== ENCOUNTER 2022-12-29 13:01 | Emergency (ER) | payer OTHER, SELFPAY ==
[2022-12-29] VITALS (8 sets, daily range): BP systolic 141–158; BP diastolic 68–89; PULSE 70–102; RESP 14–22; TEMP 36.8–37.2; O2SAT 94–96; BMI 31.5
--- NOTE | ~2022-12-29 | XR_ITS ---
EXAMINATION: XR CHEST CLINICAL INFORMATION: Weakness COMPARISON: 11/21/2022 TECHNIQUE: 2 views of the chest were obtained. FINDINGS: Heart and mediastinum within normal limits. Aortic calcifications again seen. Hyperinflation with flattening of the hemidiaphragms. No vascular congestion, consolidations or effusions. Demineralization and degenerative changes. Old left posterolateral rib fracture. XR/XR chest 2V IMPRESSION: No acute cardiopulmonary disease or interval change.
--- NOTE | 2022-12-29 13:09 | ECG_ITS ---
Test Reason : weakness Blood Pressure : / mmHG Vent. Rate : 091 BPM Atrial Rate : 091 BPM P-R Int : 174 ms QRS Dur : 074 ms QT Int : 356 ms P-R-T Axes : 048 026 030 degrees QTc Int : 437 ms Sinus rhythm with Premature supraventricular complexes Otherwise normal ECG When compared with ECG of 25-JUN-2012 10:47, Premature supraventricular complexes are now Present Vent. rate has increased BY 31 BPM Referred By: Ashley Martinez Electronically Signed By:Bhupinder Webber
--- NOTE | 2022-12-29 13:30 | PC.NURSE ---
pt alert and orientated x3. vs stable. lung sounds clear, respirations equal and unlabored. pt reports no pain. skin pink, warm and dry.
[2022-12-29 14:21] LABS: MANUAL DIFF FLAG NO
[2022-12-29 14:25] LABS: Appearance Urine Clear; Color Urine Yellow; Glucose Urine UA Negative (Negative); Leukocyte Esterase Urine Negative (Negative); Nitrite Urine Negative (Negative); PH 5.5 (5.0-9.0); Specific Gravity - Urine >= 1.030 (1.005-1.025); UMIC TRIGGER UACC YES; Urine Blood Negative (Negative); Urine Ketones Trace mg/dL (Negative); Urine Protein 30 (1+) mg/dL (Neg-Trace)
[2022-12-29 14:25] LABS: Basophils Absolute Auto 0.1 X10*3/uL (0.0-0.2); Basophils Percent Auto 0.9 % (0-2); Eosinophils Absolute Auto 0.1 X10*3/uL (0.0-0.4); Eosinophils Percent Auto 1.5 % (0-4); Hematocrit 40.9 % (42.0-52.0); Hemoglobin 13.5 g/dl (14.0-18.0); Imm Gran Abs Auto 0.02 X10*3/uL (0.00-0.03); Imm Gran Pct Auto 0.4 % (0.0-0.4); Lymphocytes Absolute Auto 1.7 X10*3/uL (1.2-4.9); Mean Corpuscular Hemoglobin 30.4 pg (27.0-33.0); Mean Corpuscular Volume 92.1 fL (80.0-98.0); Mean Platelet Volume 9.8 fL (9.4-12.4); Monocytes Absolute Auto 0.5 X10*3/uL (0.1-1.2); Monocytes Percent Auto 8.3 % (2-11); Neutrophils Absolute Auto 3.1 x10*3/uL (2.0-8.3); Neutrophils Percent Auto 57.9 % (45-73); Platelet Count 238 X10*3/uL (160-400); Red Blood Count 4.44 X10*6/uL (4.60-5.80); Red Cell Distribution Width 13.2 % (11.0-16.0); White Blood Count 5.4 X10*3/uL (4.8-10.8)
--- NOTE | 2022-12-29 14:25 | ED.CHESTPAIN ---
HPI - Chest Pain General Chief Complaint: Chest Pain Stated Complaint: WEAK AND TIRED X' A MONTH,SENT BY [facility] PER EMS Time Seen by Provider: 12/29/22 14:14 Source: patient and EMS Mode of arrival: EMS Limitations: no limitations History of Present Illness HPI narrative: Patient comes to the emergency room via ambulance from the primary care physician's office. Patient has been complaining of weakness and constant chest pain for 1 month. Also, patient reports that whenever he sits up, he feels lightheaded, unsteady on his feet. Patient uses a walker at baseline. Patient states that he has constantly a mild chest pain that is present all the time, sometimes gets worse, present for 1 month. Patient denies URI or UTI symptoms, no abdominal pain, no nausea vomiting diarrhea, fever chills. Related Data Home Medications Medication Instructions Recorded Confirmed albuterol sulfate 90 mcg/actuation 2 puff inhalation Q4H PRN wheezing 08/06/20 12/09/22 aerosol inhaler (Ventolin HFA) atorvastatin 40 mg tablet 1 tab PO DAILY 08/06/20 12/09/22 digoxin 125 mcg (0.125 mg) tablet 1 tab PO DAILY 08/06/20 12/09/22 docusate sodium 100 mg capsule 1 cap PO BID 08/06/20 12/09/22 fluticasone propionate 44 1 puff PO BID 08/06/20 12/09/22 mcg/actuation HFA aerosol inhaler (Flovent HFA) fluticasone propionate 50 1 spray intranasal BID PRN Nasal 08/06/20 12/09/22 mcg/actuation nasal Congestion spray,suspension insulin glargine 100 unit/mL (3 27 - 29 unit subcut BEDTIME 08/06/20 12/09/22 mL) subcutaneous pen (Basaglar KwikPen U-100 Insulin) isosorbide mononitrate 30 mg 30 mg PO DAILY 08/06/20 12/09/22 tablet,extended release 24 hr lisinopril 5 mg tablet 1 tab PO DAILY 08/06/20 12/09/22 metformin 500 mg tablet 2 tab PO BID 08/06/20 12/09/22 omeprazole 20 mg capsule,delayed 1 cap PO DAILY 08/06/20 12/09/22 release ropinirole 0.25 mg tablet 2 tab PO BEDTIME 08/06/20 12/09/22 dulaglutide 0.75 mg/0.5 mL 0.75 mg subcut QWEEK 06/05/21 12/09/22 subcutaneous pen injector (Trulicity) Previous Rx's Medication Instructions Recorded rivaroxaban 20 mg tablet (Xarelto) 1 tab PO DAILY #90 tabs 12/09/22 Allergies Allergy/AdvReac Type Severity Reaction Status Date / Time No Known Allergies Allergy Verified 12/29/22 13:14 Review of Systems Review of Systems: Constitutional : No Weight loss, No Fever, No Chills, No Night Sweats, complaining of fatigue and weakness for over a month ENT/Mouth : No Hearing loss, No Ear Pain, No Nasal Congestion, No Sinus Pain, No Hoarseness, No sore throat, No Rhinorrhea, No Swallowing Difficulty Eyes: No Eye Pain, No Swelling, No Redness, No Foreign Body, No Discharge, No Vision Changes Cardiovascular : Complaining of chronic chest pain, mild for over a month Respiratory : No Cough, No Sputum, No Wheezing, No Smoke Exposure, No Dyspnea Gastrointestinal : No Nausea, No Vomiting, No Diarrhea, No Constipation, No abdominal Pain, No Hematochezia, No Melena Genitourinary : no irregular bleeding, No Dysuria, No Urinary Frequency, No Hematuria, No Urinary Incontinence, No Urgency, No Flank Pain, No Urinary Flow Changes, No Hesitancy Musculoskeletal : No joint pain, No Myalgias, No Joint Swelling Skin : No Skin Lesions, No rash Neuro : No Weakness, No Numbness, No Paresthesias, No Loss of Consciousness, No Dizziness, No Headache Psych : No Anxiety/Panic, No Depression, No SI/HI/AH/VH, No Social Issues, Heme/Lymph: No Bruising, No Bleeding,No Lymphadenopathy Endocrine : No Polyuria, No Polydipsia, No Temperature Intolerance [facility] Past Medical History Medical History Diabetes Dysrhythmias GERD (gastroesophageal reflux disease) History of DVT (deep vein thrombosis) Hypercholesteremia Hypertension S/P angiogram of extremity (03/04/22) Surgical History Hx of appendectomy Family History Family History Father No problems noted. Mother No problems noted. Other No family history of cancer Social History Social History Household Members: Spouse Housing: Apartment Are you a primary career resource specialist to a significant other at home: No Do you presently have visiting nurse or other home services: No Alcohol intake: never Patient Tobacco Use Status: Former Tobacco user Tobacco use type: Cigarette Smoked in Last 30 Days: No Use of substances other than those prescribed or required for medical reasons: No Advance Directives: Yes Advance Directives Information Provided: Yes Advance Directives on File: No service: No Current occupational status: retired Physical Exam Vital Signs: Vital Signs: Last Vital Signs Temp 98.9 F 12/29/22 16:53 Pulse 70 12/29/22 20:00 Resp 14 12/29/22 20:00 BP 152/89 H 12/29/22 20:00 Pulse Ox 96 12/29/22 20:00 O2 Del Method Room Air 12/29/22 16:53 BMI result Body Mass Index 31.5 Const: Other: Appearance: Alert. Oriented X3. No acute distress. Eyes: Pupils equal, round and reactive to light. ENT: Pharynx normal. Neck: Normal inspection. Neck supple. No lymph nodes noted. No crepitus CVS: Normal heart rate and rhythm. Pulses normal. Normal S1 and S2 Respiratory: No respiratory distress. Breath sounds normal. No Wheezing. No rales , reproducible chest pain to palpation and sternal area and right side of the chest Abdomen: Soft and nontender. No rigidity. No distention. Skin: Skin warm and dry. Normal skin color. Normal skin turgor. Extremities: No lower extremity edema. No Lacerations. No Rash Neuro: Oriented X 3. No motor deficit. No sensory deficit. Moving all extremities. No slurred speech. CN 2 through 12 grossly intact Psych: calm, cooperative, normal affect Course Course Course Narrative: -all of patient's labs pending, orthostatic vitals pending Medications Administered Discontinued Medications Generic Name Dose Route Start Last Admin Trade Name Freq PRN Reason Stop Dose Admin Magnesium Sulfate 2 gm in 50 mls @ 25 mls/hr 12/29/22 18:35 12/29/22 20:10 Magnesium Sulfate/H2o IV 12/29/22 20:34 25 mls/hr ONCE ONE Administration Magnesium Oxide 800 mg 12/29/22 15:05 12/29/22 16:04 Magnesium Oxide 400 Mg Tablet PO 12/29/22 15:06 800 mg ONCE ONE Administration Medical Decision Making Medical Decision Making [facility] Narrative: -EKG my interpretation: Sinus rhythm, heart rate 91, no ST segment depressions or elevation, no T-wave inversions, QTC 437, occasional PVCs - patient's magnesium is 1.4, patient given p.o. magnesium. -after patient got p.o. magnesium, patient's magnesium dropped again, 1.3, now patient getting IV magnesium -magnesium level pending. -patient was able to ambulate by himself to the bathroom, good strength. -urine is negative for UTI -if magnesium is normal, patient may be discharged. -sign-out given to Dr. Fountain Lab Data [facility] Lab Attestation statement: I reviewed the patient's lab results. 12/29/22 13:54 12/29/22 13:54 Labs: Lab Results 12/29/22 12/29/22 12/29/22 Range/Units 13:52 13:54 13:54 WBC 5.4 (4.8-10.8) X10*3/uL RBC 4.44 L (4.60-5.80) X10*6/uL Hgb 13.5 L (14.0-18.0) g/dl Hct 40.9 L (42.0-52.0) % MCV 92.1 (80.0-98.0) fL MCH 30.4 (27.0-33.0) pg MCHC 33.0 (31.0-36.0) g/dl RDW 13.2 (11.0-16.0) % Plt Count 238 (160-400) X10*3/uL MPV 9.8 (9.4-12.4) fL Immature Gran % (Auto) 0.4 (0.0-0.4) % Neut % (Auto) 57.9 (45-73) % Lymph % (Auto) 31.0 (20-40) % [place] % (Auto) 8.3 (2-11) % Eos % (Auto) 1.5 (0-4) % Baso % (Auto) 0.9 (0-2) % Lymph # (Auto) 1.7 (1.2-4.9) X10*3/uL [place] # (Auto) 0.5 (0.1-1.2) X10*3/uL Eos # (Auto) 0.1 (0.0-0.4) X10*3/uL Baso # (Auto) 0.1 (0.0-0.2) X10*3/uL Abs Immat Gran (auto) 0.02 (0.00-0.03) X10*3/uL Absolute Neuts (auto) 3.1 (2.0-8.3) x10*3/uL Absolute Nucleated RBC 0.000 (0.0-0.012) X10*3/uL Nucleated RBC % (auto) 0.0 (0.0-0.2) /100WBC PT (10.0-13.1) SEC INR (0.9-1.1) APTT (26.0-36.4) SEC VBG pH (7.32-7.43) VBG pCO2 mmHg VBG pO2 mmHg VBG HCO3 (22-26) mmol/L VBG O2 Saturation % VBG Base Excess mmol/L Sodium 142 (135-145) mmol/L Potassium 3.8 (3.3-5.1) mmol/L Chloride 105 (96-108) mmol/L Carbon Dioxide 27 (22-29) mmol/L Anion Gap 14 (12-20) BUN 16 (9-16) mg/dL Creatinine 0.82 (0.5-1.4) mg/dL Estim Creat Clear Calc 76.1 Estimated GFR > 60 Random Glucose 144 H (60-115) mg/dL Calcium 10.3 H D (8.4-10.2) mg/dL Magnesium 1.4 L* (1.6-2.6) mg/dL Total Bilirubin 0.6 (0.0-1.0) mg/dL AST 16 (5-37) U/L ALT 14 (0-40) U/L Alkaline Phosphatase 56 (39-117) U/L Troponin I High Sens (<3.5-35.0) ng/L B-Natriuretic Peptide (<100) pg/mL Total Protein 7.3 (6.5-8.0) g/dL Albumin 4.2 (3.5-5.0) g/dL Urine Color Yellow Urine Appearance Clear Urine pH 5.5 (5.0-9.0) Ur Specific [place] >= 1.030 H (1.005-1.025) Urine Protein 30 (1+) H (Neg-Trace) mg/dL Urine Glucose (UA) Negative (Negative) mg/dL Urine Ketones Trace (Negative) mg/dL Urine Blood Negative (Negative) Urine Nitrite Negative (Negative) Ur Leukocyte Esterase Negative (Negative) Urine RBC 0-2 (0-2) /HPF Urine WBC 0-5 (0-5) /HPF Ur Squamous Epith Cells 0-2 (0-2) /HPF Urine Bacteria None Seen (None Seen) Hyaline Casts 0-2 (0-2) /LPF COVID-19 ([facility]) (Negative) COVID-19 Clin Com 12/29/22 12/29/22 12/29/22 Range/Units 13:54 13:55 13:55 WBC (4.8-10.8) X10*3/uL RBC (4.60-5.80) X10*6/uL Hgb (14.0-18.0) g/dl Hct (42.0-52.0) % MCV (80.0-98.0) fL MCH (27.0-33.0) pg MCHC (31.0-36.0) g/dl RDW (11.0-16.0) % Plt Count (160-400) X10*3/uL MPV (9.4-12.4) fL Immature Gran % (Auto) (0.0-0.4) % Neut % (Auto) (45-73) % Lymph % (Auto) (20-40) % [place] % (Auto) (2-11) % Eos % (Auto) (0-4) % Baso % (Auto) (0-2) % Lymph # (Auto) (1.2-4.9) X10*3/uL [place] # (Auto) (0.1-1.2) X10*3/uL Eos # (Auto) (0.0-0.4) X10*3/uL Baso # (Auto) (0.0-0.2) X10*3/uL Abs Immat Gran (auto) (0.00-0.03) X10*3/uL Absolute Neuts (auto) (2.0-8.3) x10*3/uL Absolute Nucleated RBC (0.0-0.012) X10*3/uL Nucleated RBC % (auto) (0.0-0.2) /100WBC PT (10.0-13.1) SEC INR (0.9-1.1) APTT (26.0-36.4) SEC VBG pH (7.32-7.43) VBG pCO2 mmHg VBG pO2 mmHg VBG HCO3 (22-26) mmol/L VBG O2 Saturation % VBG Base Excess mmol/L Sodium (135-145) mmol/L Potassium (3.3-5.1) mmol/L Chloride (96-108) mmol/L Carbon Dioxide (22-29) mmol/L Anion Gap (12-20) BUN (9-16) mg/dL Creatinine (0.5-1.4) mg/dL Estim Creat Clear Calc Estimated GFR Random Glucose (60-115) mg/dL Calcium (8.4-10.2) mg/dL Magnesium (1.6-2.6) mg/dL Total Bilirubin (0.0-1.0) mg/dL AST (5-37) U/L ALT (0-40) U/L Alkaline Phosphatase (39-117) U/L Troponin I High Sens 7.4 (<3.5-35.0) ng/L B-Natriuretic Peptide 41 (<100) pg/mL Total Protein (6.5-8.0) g/dL Albumin (3.5-5.0) g/dL Urine Color Urine Appearance Urine pH (5.0-9.0) Ur Specific [place] (1.005-1.025) Urine Protein (Neg-Trace) mg/dL Urine Glucose (UA) (Negative) mg/dL Urine Ketones (Negative) mg/dL Urine Blood (Negative) Urine Nitrite (Negative) Ur Leukocyte Esterase (Negative) Urine RBC (0-2) /HPF Urine WBC (0-5) /HPF Ur Squamous Epith Cells (0-2) /HPF Urine Bacteria (None Seen) Hyaline Casts (0-2) /LPF COVID-19 ([place]) Negative (Negative) COVID-19 Clin Com See Note 12/29/22 12/29/22 12/29/22 Range/Units 13:55 14:41 17:02 WBC (4.8-10.8) X10*3/uL RBC (4.60-5.80) X10*6/uL Hgb (14.0-18.0) g/dl Hct (42.0-52.0) % MCV (80.0-98.0) fL MCH (27.0-33.0) pg MCHC (31.0-36.0) g/dl RDW (11.0-16.0) % Plt Count (160-400) X10*3/uL MPV (9.4-12.4) fL Immature Gran % (Auto) (0.0-0.4) % Neut % (Auto) (45-73) % Lymph % (Auto) (20-40) % [place] % (Auto) (2-11) % Eos % (Auto) (0-4) % Baso % (Auto) (0-2) % Lymph # (Auto) (1.2-4.9) X10*3/uL [place] # (Auto) (0.1-1.2) X10*3/uL Eos # (Auto) (0.0-0.4) X10*3/uL Baso # (Auto) (0.0-0.2) X10*3/uL Abs Immat Gran (auto) (0.00-0.03) X10*3/uL Absolute Neuts (auto) (2.0-8.3) x10*3/uL Absolute Nucleated RBC (0.0-0.012) X10*3/uL Nucleated RBC % (auto) (0.0-0.2) /100WBC PT 12.4 (10.0-13.1) SEC INR 1.1 (0.9-1.1) APTT 34.6 (26.0-36.4) SEC VBG pH 7.42 (7.32-7.43) VBG pCO2 44 mmHg VBG pO2 60 mmHg VBG HCO3 29 H (22-26) mmol/L VBG O2 Saturation 89.0 % VBG Base Excess 4.0 mmol/L Sodium (135-145) mmol/L Potassium (3.3-5.1) mmol/L Chloride (96-108) mmol/L Carbon Dioxide (22-29) mmol/L Anion Gap (12-20) BUN (9-16) mg/dL Creatinine (0.5-1.4) mg/dL Estim Creat Clear Calc Estimated GFR Random Glucose (60-115) mg/dL Calcium (8.4-10.2) mg/dL Magnesium 1.3 L* (1.6-2.6) mg/dL Total Bilirubin (0.0-1.0) mg/dL AST (5-37) U/L ALT (0-40) U/L Alkaline Phosphatase (39-117) U/L Troponin I High Sens (<3.5-35.0) ng/L B-Natriuretic Peptide (<100) pg/mL Total Protein (6.5-8.0) g/dL Albumin (3.5-5.0) g/dL Urine Color Urine Appearance Urine pH (5.0-9.0) Ur Specific [place] (1.005-1.025) Urine Protein (Neg-Trace) mg/dL Urine Glucose (UA) (Negative) mg/dL Urine Ketones (Negative) mg/dL Urine Blood (Negative) Urine Nitrite (Negative) Ur Leukocyte Esterase (Negative) Urine RBC (0-2) /HPF Urine WBC (0-5) /HPF Ur Squamous Epith Cells (0-2) /HPF Urine Bacteria (None Seen) Hyaline Casts (0-2) /LPF COVID-19 ([place]) (Negative) COVID-19 Clin Com 12/29/22 Range/Units 17:02 WBC (4.8-10.8) X10*3/uL RBC (4.60-5.80) X10*6/uL Hgb (14.0-18.0) g/dl Hct (42.0-52.0) % MCV (80.0-98.0) fL MCH (27.0-33.0) pg MCHC (31.0-36.0) g/dl RDW (11.0-16.0) % Plt Count (160-400) X10*3/uL MPV (9.4-12.4) fL Immature Gran % (Auto) (0.0-0.4) % Neut % (Auto) (45-73) % Lymph % (Auto) (20-40) % [place] % (Auto) (2-11) % Eos % (Auto) (0-4) % Baso % (Auto) (0-2) % Lymph # (Auto) (1.2-4.9) X10*3/uL [place] # (Auto) (0.1-1.2) X10*3/uL Eos # (Auto) (0.0-0.4) X10*3/uL Baso # (Auto) (0.0-0.2) X10*3/uL Abs Immat Gran (auto) (0.00-0.03) X10*3/uL Absolute Neuts (auto) (2.0-8.3) x10*3/uL Absolute Nucleated RBC (0.0-0.012) X10*3/uL Nucleated RBC % (auto) (0.0-0.2) /100WBC PT (10.0-13.1) SEC INR (0.9-1.1) APTT (26.0-36.4) SEC VBG pH (7.32-7.43) VBG pCO2 mmHg VBG pO2 mmHg VBG HCO3 (22-26) mmol/L VBG O2 Saturation % VBG Base Excess mmol/L Sodium (135-145) mmol/L Potassium (3.3-5.1) mmol/L Chloride (96-108) mmol/L Carbon Dioxide (22-29) mmol/L Anion Gap (12-20) BUN (9-16) mg/dL Creatinine (0.5-1.4) mg/dL Estim Creat Clear Calc Estimated GFR Random Glucose (60-115) mg/dL Calcium (8.4-10.2) mg/dL Magnesium (1.6-2.6) mg/dL Total Bilirubin (0.0-1.0) mg/dL AST (5-37) U/L ALT (0-40) U/L Alkaline Phosphatase (39-117) U/L Troponin I High Sens 8.2 (<3.5-35.0) ng/L B-Natriuretic Peptide (<100) pg/mL Total Protein (6.5-8.0) g/dL Albumin (3.5-5.0) g/dL Urine Color Urine Appearance Urine pH (5.0-9.0) Ur Specific [place] (1.005-1.025) Urine Protein (Neg-Trace) mg/dL Urine Glucose (UA) (Negative) mg/dL Urine Ketones (Negative) mg/dL Urine Blood (Negative) Urine Nitrite (Negative) Ur Leukocyte Esterase (Negative) Urine RBC (0-2) /HPF Urine WBC (0-5) /HPF Ur Squamous Epith Cells (0-2) /HPF Urine Bacteria (None Seen) Hyaline Casts (0-2) /LPF COVID-19 ([place]) (Negative) COVID-19 Clin Com Discharge Plan Discharge Clinical Impression: Hypomagnesemia Patient Disposition: Still a Patient Instructions: Hypomagnesemia (ED) Additional Instructions: Please follow-up with your primary care physician tomorrow. If you have any worsening or new symptoms, please return to the emergency room or call 911 Prescriptions: No Action atorvastatin 40 mg tablet 1 tab PO DAILY metformin 500 mg tablet 2 tab PO BID isosorbide mononitrate 30 mg tablet extended release 24 hr 30 mg PO DAILY ropinirole 0.25 mg tablet 2 tab PO BEDTIME fluticasone propionate [Flovent HFA] 44 mcg/actuation HFA aerosol inhaler 1 puff PO BID docusate sodium 100 mg capsule 1 cap PO BID omeprazole 20 mg capsule,delayed release(DR/EC) 1 cap PO DAILY lisinopril 5 mg tablet 1 tab PO DAILY digoxin 125 mcg (0.125 mg) tablet 1 tab PO DAILY albuterol sulfate [Ventolin HFA] 90 mcg/actuation HFA aerosol inhaler 2 puff inhalation Q4H PRN (Reason: wheezing) fluticasone propionate 50 mcg/actuation spray,suspension 1 spray intranasal BID PRN (Reason: Nasal Congestion) insulin glargine [Basaglar KwikPen U-100 Insulin] 100 unit/mL (3 mL) insulin pen 27 - 29 unit subcut BEDTIME Trulicity 0.75 mg/0.5 mL Pen Injector 0.75 mg SUBCUT QWEEK Xarelto 20 mg tablet 1 tab PO DAILY Qty: 90 6RF Rx Instructions: Take 20 mg po daily
[2022-12-29 14:31] LABS: Bacteria Urine None Seen (None Seen); Hyaline Casts Urine 0-2 /LPF (0-2); RBC Urine 0-2 /HPF (0-2); Squamous Epithelial Cell Urine 0-2 /HPF (0-2); WBC Urine 0-5 /HPF (0-5)
[2022-12-29 14:32] LABS: INTERNATIONAL NORM RATIO 1.1 (0.9-1.1); Prothrombin Time 12.4 SEC (10.0-13.1)
[2022-12-29 14:35] LABS: Partial Thromboplastin Time 34.6 SEC (26.0-36.4)
[2022-12-29 14:46] LABS: COVID-19 Test Negative (Negative); IDNOW Serial# 08D9AD1C
[2022-12-29 14:48] LABS: VBG HCO3 29 mmol/L (22-26); VBG pCO2 44 mmHg; VBG pH 7.42 (7.32-7.43); VBG pO2 60 mmHg
[2022-12-29 14:51] LABS: Alanine Aminotransferase 14 U/L (0-40); Albumin Level 4.2 g/dL (3.5-5.0); Alkaline Phosphatase 56 U/L (39-117); Anion Gap 14 (12-20); Aspartate Amino Transferase 16 U/L (5-37); Bilirubin Total 0.6 mg/dL (0.0-1.0); Blood Urea Nitrogen 16 mg/dL (9-16); Calcium 10.3 mg/dL (8.4-10.2); Carbon Dioxide 27 mmol/L (22-29); Chloride 105 mmol/L (96-108); Creatinine Clr Calc Pharmacy 76.1; Estimated Glomerular Filt Rate > 60; Glucose Random 144 mg/dL (60-115); Magnesium 1.4 mg/dL (1.6-2.6); Potassium 3.8 mmol/L (3.3-5.1); Sodium 142 mmol/L (135-145); Total Protein 7.3 g/dL (6.5-8.0)
[2022-12-29 14:51] LABS: Venous Blood Gas Refer to POC result
[2022-12-29 14:53] LABS: B Type Natriuretic Peptide 41 pg/mL (<100)
[2022-12-29 14:53] LABS: Troponin-I High Sensitivity 7.4 ng/L (<3.5-35.0)
[2022-12-29] MEDS: Magnesium Oxide 400 MG TABLET 800 MG PO (16:04)
[2022-12-29 17:50] LABS: Magnesium 1.3 mg/dL (1.6-2.6)
[2022-12-29 17:54] LABS: Troponin-I High Sensitivity 8.2 ng/L (<3.5-35.0)
--- NOTE | 2022-12-29 19:07 | PC.NURSE ---
Assumed care of pt. pt transfered to room from chou bed. IV placed for ordered infusion. Pt c/o continued chronic chest pain 10/12, mid sternal. Denies other symptoms at this time. VSS, pending dispo.
[2022-12-29] MEDS: Magnesium Sulfate/H2O 2 GM/50 ML PIGGYBACK IV (20:10)
[2022-12-29 22:22] LABS: Magnesium 1.9 mg/dL (1.6-2.6)
== END 2022-12-29 23:25 | disposition home or self-care (01) ==
PROVIDERS: Physician Assistant Medical; Emergency Provider Emergency Medicine
DX: E83.42 Hypomagnesemia (principal); R07.89 Other chest pain; R53.1 Weakness; Z87.891 Personal history of nicotine dependence; Z20.822 Contact with and (suspected) exposure to COVID-19; Z20.828 Contact with and (suspected) exposure to other viral communicable diseases; Z79.899 Other long term (current) drug therapy
CPT/HCPCS: 36415; 71046; 80053; 81001; 82803; 83735; 83880; 84484; 85025; 85610; 85730; 87635; 93005; 96365; 96366; 99284; 99285; J3475

== ENCOUNTER → 2022-12-31 14:08 | Outpatient (BNVA) | payer OTHER, SELFPAY | PROVIDERS: Visit Provider Surgery Vascular Surgery | DX: I82.409 Acute embolism and thrombosis of unspecified deep veins of unspecified lower extremity (principal) | CPT/HCPCS: 99212 ==

== ENCOUNTER 2023-01-25 13:26 | Outpatient (REF) | payer SELFPAY | END 2023-01-25 13:27 | disposition home or self-care (01) | LOC: HO.HAP 13:26 | PROVIDERS: Visit Provider Internal Medicine | DX: Z13.89 Encounter for screening for other disorder (principal) ==

== ENCOUNTER 2023-02-02 15:35 | Emergency (ER) | payer OTHER, SELFPAY ==
--- NOTE | ~2023-02-02 | CT_ITS ---
EXAMINATION: CT ABDOMEN AND PELVIS WITHOUT CONTRAST CLINICAL INFORMATION: Lower abdominal pain, diarrhea. COMPARISON: Abdomen/pelvis 01/16/2022. TECHNIQUE: Multidetector volumetric imaging was performed from the superior aspect of the liver through the pubic symphysis. Sagittal and coronal reformatted images were obtained on the technologist's workstation. This CT examination was performed using dose optimization techniques as appropriate, variously including the following: *Automated exposure control *Adjustment of mA and/or kV according to patient size (this includes techniques or standardized protocols for targeted exams where dose is matched to indication/reason for exam; i.e. extremities or head) *Use of iterative reconstruction technique DLP: 614 mGy-cm FINDINGS: The lack of intravenous contrast limits evaluation of the solid visceral organs including the liver, spleen, pancreas, and kidneys. LUNG BASES: Unchanged pleural-based platelike opacities in the right lower lung, favoring to represent subsegmental atelectasis or scarring. Stable mild chronic bronchiectasis. No focal consolidation or pleural effusion. Partially imaged coronary artery calcifications. LIVER, GALLBLADDER, AND BILIARY TREE: The liver is normal in size, shape, and attenuation. Redemonstration of a few small calcified granulomas. No new focal hepatic lesion in this limited noncontrast examination. Cholecystectomy with stable mild biliary ductal dilatation, suspected in a chronic post cholecystectomy state. PANCREAS: Limited noncontrast examination. No significant peripancreatic free fluid or fat stranding. SPLEEN: Unremarkable. ADRENAL GLANDS: Unremarkable. KIDNEYS AND URETERS: Simple cyst in the lower pole of the right kidney, for which no imaging follow-up is recommended. No nephrolithiasis or hydronephrosis. No significant perinephric fat stranding. BLADDER: Decompressed limiting its evaluation. Suspect diffuse wall thickening, unchanged. GASTROINTESTINAL TRACT: Fat-containing hiatal hernia. Nonspecific gastric distention. The small bowel is nondilated. No significant inflammatory changes in the right lower quadrant to suspect acute appendicitis. No significant pericolonic fat stranding/free fluid to suspected acute colitis or diverticulitis. No evidence of bowel obstruction. ABDOMINAL WALL: Postsurgical changes in the mid abdominal wall with a few very small fat-containing hernias. Redemonstration of collateral veins throughout the anterior abdominal wall. LYMPH NODES: Mild mesenteric haziness is not significantly changed. No enlarging lymph nodes. VASCULAR: Limited noncontrast examination. Biiliac stent graft, suboptimally assessed in the absence of IV contrast. Atherosclerotic disease. Abdominal aorta is normal in caliber. PELVIC VISCERA: Enlarged prostate. OSSEOUS STRUCTURES: Unchanged compression deformity at T12 with associated vertebroplasty cement. CT/CT abdomen pelvis wo IV con IMPRESSION: Limited noncontrast examination. 1. Nonspecific gastric distention. Differential considerations includes postprandial state, gastroparesis or gastric outlet obstruction. 2. No evidence of bowel obstruction. 3. Enlarged prostate. Chronic diffuse wall thickening of the urinary bladder likely related with outlet obstruction, correlation with urinalysis could be obtained as clinically indicated. 4. Biiliac stent grafts, suboptimally assessed in the absence of IV contrast. Further evaluation with a CTA could be obtained if clinically indicated.
[2023-02-02 16:29] VITALS: BP 154/76; PULSE 76; RESP 18; TEMP 36.1; O2SAT 97; BMI 30.7
--- NOTE | 2023-02-02 16:29 | ED_ITS ---
HPI - Abdominal Pain General Chief Complaint: Abdominal Pain Stated Complaint: abd pain/ diarrhea Time Seen by Provider: 02/02/23 19:09 Source: patient and family Mode of arrival: ambulatory History of Present Illness HPI narrative: This is a 77-year-old male who presents with complaints of 10-14 days of loose stools and has had some associated abdominal cramping and nausea but no vomiting and no fever or chills. Patient states that this is started after he was seen here in the emergency room for constipation and he at that time he was noted to have a low magnesium and was started on daily magnesium. Related Data Home Medications Medication Instructions Recorded Confirmed albuterol sulfate 90 mcg/actuation 2 puff inhalation Q4H PRN wheezing 08/06/20 12/09/22 aerosol inhaler (Ventolin HFA) atorvastatin 40 mg tablet 1 tab PO DAILY 08/06/20 12/09/22 digoxin 125 mcg (0.125 mg) tablet 1 tab PO DAILY 08/06/20 12/09/22 docusate sodium 100 mg capsule 1 cap PO BID 08/06/20 12/09/22 fluticasone propionate 44 1 puff PO BID 08/06/20 12/09/22 mcg/actuation HFA aerosol inhaler (Flovent HFA) fluticasone propionate 50 1 spray intranasal BID PRN Nasal 08/06/20 12/09/22 mcg/actuation nasal Congestion spray,suspension insulin glargine 100 unit/mL (3 27 - 29 unit subcut BEDTIME 08/06/20 12/09/22 mL) subcutaneous pen (Basaglar KwikPen U-100 Insulin) isosorbide mononitrate 30 mg 30 mg PO DAILY 08/06/20 12/09/22 tablet,extended release 24 hr lisinopril 5 mg tablet 1 tab PO DAILY 08/06/20 12/09/22 metformin 500 mg tablet 2 tab PO BID 08/06/20 12/09/22 omeprazole 20 mg capsule,delayed 1 cap PO DAILY 08/06/20 12/09/22 release ropinirole 0.25 mg tablet 2 tab PO BEDTIME 08/06/20 12/09/22 dulaglutide 0.75 mg/0.5 mL 0.75 mg subcut QWEEK 06/05/21 12/09/22 subcutaneous pen injector (Trulicity) Previous Rx's Medication Instructions Recorded rivaroxaban 20 mg tablet (Xarelto) 1 tab PO DAILY #90 tabs 12/09/22 Allergies Allergy/AdvReac Type Severity Reaction Status Date / Time No Known Allergies Allergy Verified 12/31/22 14:12 Review of Systems Review of Systems Pertinent positives and negatives as stated in [facility] Past Medical History Source: nursing notes reviewed Medical History Diabetes Dysrhythmias GERD (gastroesophageal reflux disease) History of DVT (deep vein thrombosis) Hypercholesteremia Hypertension S/P angiogram of extremity (03/04/22) Surgical History Hx of appendectomy Family History Family History Father No problems noted. Mother No problems noted. Other No family history of cancer Social History Social History Household Members: Spouse Housing: Apartment Are you a primary primary care nurse to a significant other at home: No Do you presently have visiting nurse or other home services: No Alcohol intake: never Patient Tobacco Use Status: Former Tobacco user Tobacco use type: Cigarette Advance Directives: No Advance Directives Information Provided: No service: No Current occupational status: retired Physical Exam ED Vital Signs: Vital Signs - 24 hr 02/02/23 16:29 Temperature 97.0 F Pulse Rate 76 Respiratory Rate 18 Blood Pressure 154/76 H Pulse Oximetry 97 BMI result Body Mass Index 30.7 VITAL SIGNS: Reviewed. GENERAL: Well developed, well nourished, in no acute distress. HEAD: Normocephalic/atraumatic EYES: PERRLA, EOMI EARS: Ext canals without abnormality NOSE: Nares patent bilateral OROPHARYNX: no oral lesions noted, posterior pharynx clear NECK: Supple, no adenopathy LUNGS: Normal breath sounds. No adventitious sounds or accessory muscle use. SpO 2<97> CARDIOVASCULAR: Regular rate and rhythm without noted murmurs ABDOMEN: Soft, non-tender, non-distended with bowel sounds. MUSCULOSKELETAL: No tenderness, deformities, or effusions noted on gross inspection. EXTREMITIES: No cyanosis, clubbing or edema. SKIN: Inspection of the skin reveals no rashes NEUROLOGIC: Alert and oriented x 4. Strength and sensation to light touch were grossly intact x 4. Course Course Course Narrative: RME - 77 yo male with history of DM, GERD, HTN, HLD who presents to the ER for evaluation of nonbloody loose stools for the last 10 days along with diffuse abdominal pains. +nausea but no vomiting. Trouble making it to the bathroom. Plan: labs, CT scan abd/pelvis, stool studies is able Medical Decision Making Medical Decision Making MDM Narrative: 77-year-old male with history and clinical presentation, DDX: Gastroenteritis, medication side effect (magnesium), food allergy, very low clinical suspicion for any intra-abdominal infection or blockage. I reviewed all investigations and he hematologic indices are negative for leukocytosis or left shift and there is no anemia or thrombocytopenia. Chemistry indices electrolytes within normal limits and no liver enzyme derangements. There is no TAYO. Patient has had improved relief of soft stools today after taking and Imodium, discussed with the patient the possibility magnesium side effect and will instruct patient to stop taking the magnesium. In my interpretation patient is suffering from diarrhea that may be secondary to recent initiation magnesium daily. There is no evidence to suggest infectious etiology and patient does not feel that this is secondary to a food allergy. I have recommended to the patient that it would be best if his primary care provides him with the Gastroenterology referral as well as a script for a stool sample. He is otherwise hemodynamically stable and discharged home. Differential Diagnosis Differential Diagnoses: The differential diagnosis associated with the presentation includes Please see the discussion above Admission/Observation Consideration of admission/observation: Escalation of care including admission/observation considered Please see the discussion above Lab Data MDM Lab Attestation statement: I reviewed the patient's lab results. Please see the discussion above 02/02/23 16:29 02/02/23 16:29 Labs: Lab Results 02/02/23 02/02/23 Range/Units 16:29 16:29 WBC 5.4 (4.8-10.8) X10*3/uL RBC 4.64 (4.60-5.80) X10*6/uL Hgb 14.2 (14.0-18.0) g/dl Hct 42.9 (42.0-52.0) % MCV 92.5 (80.0-98.0) fL MCH 30.6 (27.0-33.0) pg MCHC 33.1 (31.0-36.0) g/dl RDW 12.3 (11.0-16.0) % Plt Count 205 (160-400) X10*3/uL MPV 9.9 (9.4-12.4) fL Immature Gran % (Auto) 0.2 (0.0-0.4) % Neut % (Auto) 55.7 (45-73) % Lymph % (Auto) 32.7 (20-40) % Simpson % (Auto) 7.9 (2-11) % Eos % (Auto) 2.8 (0-4) % Baso % (Auto) 0.7 (0-2) % Lymph # (Auto) 1.8 (1.2-4.9) X10*3/uL Simpson # (Auto) 0.4 (0.1-1.2) X10*3/uL Eos # (Auto) 0.2 (0.0-0.4) X10*3/uL Baso # (Auto) 0.0 (0.0-0.2) X10*3/uL Abs Immat Gran (auto) 0.01 (0.00-0.03) X10*3/uL Absolute Neuts (auto) 3.0 (2.0-8.3) x10*3/uL Absolute Nucleated RBC 0.000 (0.0-0.012) X10*3/uL Nucleated RBC % (auto) 0.0 (0.0-0.2) /100WBC Smear Tech's Comments VERIFIED Sodium 136 (135-145) mmol/L Potassium 4.3 (3.3-5.1) mmol/L Chloride 112 H (96-108) mmol/L Carbon Dioxide 13 L (22-29) mmol/L Anion Gap 15 (12-20) BUN 12 (9-16) mg/dL Creatinine 0.87 (0.5-1.4) mg/dL Estim Creat Clear Calc 70.8 Estimated GFR > 60 Random Glucose 193 H (60-115) mg/dL Calcium 9.1 D (8.4-10.2) mg/dL Magnesium 2.1 (1.6-2.6) mg/dL Total Bilirubin 0.3 (0.0-1.0) mg/dL Direct Bilirubin 0.3 (0.0-0.5) mg/dL AST 21 (5-37) U/L ALT 14 (0-40) U/L Alkaline Phosphatase 53 (39-117) U/L Total Protein 6.9 (6.5-8.0) g/dL Albumin 3.3 L (3.5-5.0) g/dL Lipase 22 (8-78) U/L Radiology Impression Radiologist Impression: There is no SBO or colitis, otherwise my interpretation is in agreement with radiology's impression. External Record Review External record reviewed: Outpatient record and Prior outpatient labs Chronic Conditions Patient?s care impacted by: Diabetes and Hypertension Discharge Plan Discharge Clinical Impression: Diarrhea, Medication side effects Patient Disposition: Home, Self-Care Instructions: Nutrition Tips for Relief of Diarrhea (ED) Additional Instructions: 1. Resume all home medications as prescribed. 2. I recommend that you stop taking the magnesium at this time as it may be contributing to your diarrhea. 3. I have provided you with a referral for Gastroenterology. 4. Follow-up with your primary care provider by calling the office in the morning and asking for prescription to provide stool sample as well as a referral for Gastroenterology Return to the ER for any worsening symptoms. Prescriptions: No Action atorvastatin 40 mg tablet 1 tab PO DAILY metformin 500 mg tablet 2 tab PO BID isosorbide mononitrate 30 mg tablet extended release 24 hr 30 mg PO DAILY ropinirole 0.25 mg tablet 2 tab PO BEDTIME fluticasone propionate [Flovent HFA] 44 mcg/actuation HFA aerosol inhaler 1 puff PO BID docusate sodium 100 mg capsule 1 cap PO BID omeprazole 20 mg capsule,delayed release(DR/EC) 1 cap PO DAILY lisinopril 5 mg tablet 1 tab PO DAILY digoxin 125 mcg (0.125 mg) tablet 1 tab PO DAILY albuterol sulfate [Ventolin HFA] 90 mcg/actuation HFA aerosol inhaler 2 puff inhalation Q4H PRN (Reason: wheezing) fluticasone propionate 50 mcg/actuation spray,suspension 1 spray intranasal BID PRN (Reason: Nasal Congestion) insulin glargine [Basaglar KwikPen U-100 Insulin] 100 unit/mL (3 mL) insulin pen 27 - 29 unit subcut BEDTIME Trulicity 0.75 mg/0.5 mL Pen Injector 0.75 mg SUBCUT QWEEK Xarelto 20 mg tablet 1 tab PO DAILY Qty: 90 6RF Rx Instructions: Take 20 mg po daily Referrals: Benton Corrigan MD [Primary Care Provider] - Marianela Caruso MD [Physician] -
[2023-02-02 16:42] LABS: Basophils Percent Auto 0.7 % (0-2); Eosinophils Absolute Auto 0.2 X10*3/uL (0.0-0.4); Eosinophils Percent Auto 2.8 % (0-4); Hematocrit 42.9 % (42.0-52.0); Hemoglobin 14.2 g/dl (14.0-18.0); Imm Gran Abs Auto 0.01 X10*3/uL (0.00-0.03); Imm Gran Pct Auto 0.2 % (0.0-0.4); Lymphocytes Absolute Auto 1.8 X10*3/uL (1.2-4.9); Lymphocytes Percent Auto 32.7 % (20-40); MANUAL DIFF FLAG SCAN; Mean Corpuscular HGB Conc 33.1 g/dl (31.0-36.0); Mean Corpuscular Hemoglobin 30.6 pg (27.0-33.0); Mean Corpuscular Volume 92.5 fL (80.0-98.0); Mean Platelet Volume 9.9 fL (9.4-12.4); Monocytes Absolute Auto 0.4 X10*3/uL (0.1-1.2); Monocytes Percent Auto 7.9 % (2-11); Neutrophils Percent Auto 55.7 % (45-73); PLT CLUMP 1; Red Blood Count 4.64 X10*6/uL (4.60-5.80); Red Cell Distribution Width 12.3 % (11.0-16.0); SCAN SMEAR FLAG 1
[2023-02-02 16:59] LABS: Alanine Aminotransferase 14 U/L (0-40); Albumin Level 3.3 g/dL (3.5-5.0); Alkaline Phosphatase 53 U/L (39-117); Anion Gap 15 (12-20); Aspartate Amino Transferase 21 U/L (5-37); Bilirubin Direct 0.3 mg/dL (0.0-0.5); Bilirubin Total 0.3 mg/dL (0.0-1.0); Blood Urea Nitrogen 12 mg/dL (9-16); Calcium 9.1 mg/dL (8.4-10.2); Carbon Dioxide 13 mmol/L (22-29); Chloride 112 mmol/L (96-108); Creatinine Clr Calc Pharmacy 70.8; Estimated Glomerular Filt Rate > 60; Glucose Random 193 mg/dL (60-115); Lipase 22 U/L (8-78); Magnesium 2.1 mg/dL (1.6-2.6); Potassium 4.3 mmol/L (3.3-5.1); Sodium 136 mmol/L (135-145); Total Protein 6.9 g/dL (6.5-8.0)
[2023-02-02 17:00] LABS: Platelet Count 205 X10*3/uL (160-400); SLIDE REVIEW VERIFIED; White Blood Count 5.4 X10*3/uL (4.8-10.8)
[2023-02-02 19:46] VITALS: BP 159/72; PULSE 75; RESP 18; TEMP 36.9; O2SAT 95
== END 2023-02-02 20:22 | disposition home or self-care (01) ==
PROVIDERS: Physician Assistant; Emergency Provider Student in an Organized Health Care Education/Training Program; PCP Internal Medicine
DX: R19.7 Diarrhea, unspecified (principal); T47.1X5A Adverse effect of other antacids and anti-gastric-secretion drugs, initial encounter; Y92.9 Unspecified place or not applicable; E11.9 Type 2 diabetes mellitus without complications; I10 Essential (primary) hypertension; E78.00 Pure hypercholesterolemia, unspecified; Z87.891 Personal history of nicotine dependence; Z79.4 Long term (current) use of insulin; Z79.899 Other long term (current) drug therapy
CPT/HCPCS: 36415; 74176; 80048; 80076; 83690; 83735; 85025; 99283; 99284

== ENCOUNTER 2023-12-06 10:31 | Outpatient (REF) | payer OTHER, SELFPAY ==
[2023-12-06 12:53] LABS: Blood Urea Nitrogen 28 mg/dL (9-16); Estimated Glomerular Filt Rate > 60
== END 2023-12-06 10:32 | disposition home or self-care (01) ==
LOC: HO.LAB 10:31
PROVIDERS: PCP Internal Medicine; Visit Provider Surgery Vascular Surgery
DX: I73.9 Peripheral vascular disease, unspecified (principal)
CPT/HCPCS: 36415; 82565; 84520

== ENCOUNTER 2024-03-08 13:51 | Outpatient (REF) | payer OTHER, SELFPAY ==
--- NOTE | ~2024-03-08 | CT_ITS ---
EXAMINATION: CT ANGIOGRAPHY ABDOMEN AND PELVIS WITHOUT AND WITH CONTRAST CLINICAL INFORMATION: Acute embolism and thrombosis of unspecified deep veins COMPARISON: CT abdomen/pelvis February 02, 2023 TECHNIQUE: Initial noncontrast localizing box lining machine operator images were obtained. A timing bolus at the level of the celiac artery was calculated. Subsequently, arterial phase multidetector volumetric imaging was performed through the abdomen and pelvis following the administration of 80 mL Omnipaque 350 intravenous contrast. No contrast reaction reported. Sagittal and coronal reformatted images were obtained on the technologist workstation. After extensive post-processing on a dedicated 3-D workstation, 3-D reformatted images were uploaded to PACS and reviewed as well. This CT examination was performed using dose optimization techniques as appropriate, variously including the following: *Automated exposure control *Adjustment of mA and/or kV according to patient size (this includes techniques or standardized protocols for targeted exams where dose is matched to indication/reason for exam; i.e. extremities or head) *Use of iterative reconstruction technique DLP: 724 mGy-cm FINDINGS: VASCULAR FINDINGS: ARTERIAL: Aorta: No aneurysm or dissection of the abdominal aorta. No penetrating atheromatous ulcer. Mesenteric Arteries: Celiac artery is patent. Superior mesenteric artery patent. Inferior mesenteric artery patent. Renal arteries: Single renal arteries bilaterally. Renal arteries are patent and without stenosis or other vascular anomaly. Iliac arteries: The common, external and internal iliac arteries are patent. Proximal femoral vessels are patent. VENOUS: Hepatic veins and IVC patent. Portal vein, portal splenic confluence, superior mesenteric vein, and splenic veins patent. Complete occlusion of bilateral iliac vein stents. Multiple anterior pelvic wall venous collaterals. NONVASCULAR: Lung Bases: The visualized lung bases are clear. Liver: Homogeneous in attenuation. Normal in size. Gallbladder: Absent. Biliary System: No intrahepatic or extrahepatic biliary dilation. Pancreas: Homogeneous in attenuation. Spleen: Normal in size. Genitourinary: Bilateral kidneys demonstrate symmetric enhancement. Right lower pole simple renal cyst 2 cm; no follow-up needed. No perinephric fluid collection. No renal calculi. No hydroureteronephrosis. Adrenal Glands: Unremarkable. Reproductive: Mild prostatomegaly. Gastrointestinal: The visualized alimentary tract is normal in course. No evidence of obstruction. Appendix: The appendix is not visualized; however, no pericecal inflammatory changes are seen in the right lower quadrant. Peritoneum: No pneumoperitoneum. No intra-abdominal fluid collection. Lymph Nodes: No pathologically enlarged abdominal or pelvic lymph nodes. Soft Tissues/Musculoskeletal: Ventral hernia repair. Post surgical changes of T12 kyphoplasty. There is no acute fracture or significant focal osseous lesion. CT/CT angio abdomen pelvis IMPRESSION: VASCULAR FINDINGS: Total occlusion of bilateral iliac vein stents. NONVASCULAR FINDINGS: No acute pathology of the abdomen or pelvis. Fleischner guidelines were followed. This critical test result was discussed with Dr. Serra at 3:02 PM on 03/13/[address] Raúl Ramírez at the time of discovery. It was ascertained that the content and the importance of the findings was understood at the time of the direct communication. Electronically signed by: Raúl Ramírez DO 03/13/2024 03:02 PM EDT
[2024-03-08] MEDS: iohexoL 350 MG/ML 100 ML INFUS..BTL IV (15:03)
[2024-03-13 12:37] LABS: Creatinine POC 0.8 mg/dL (0.5-1.4); GFR POC > 60
== END 2024-03-08 13:52 | disposition home or self-care (01) ==
LOC: HO.CT 13:51
PROVIDERS: PCP Internal Medicine; Visit Provider Surgery Vascular Surgery
DX: Z86.718 Personal history of other venous thrombosis and embolism (principal)
CPT/HCPCS: 74174; 82565; Q9967

== ENCOUNTER 2024-03-21 13:43 | Outpatient (AMB) | payer OTHER, SELFPAY ==
[2024-03-21 13:45] VITALS: BMI 33.6
--- NOTE | 2024-03-21 13:45 | MHC.OFFVIS ---
Vital Signs 03/21/24 13:45 Height 5 ft 6 in Weight 208 lb BMI 33.6 Intake Visit Reasons: Follow Up 03/08 CT Intake Note: overdue follow up CTA abd/pelvis 03/08/24. Pt states that bilateral LE are painful after 5 steps. States if there is an incline its very difficult. Tennis Professional Required: No Accompanied by: Self / Same As Patient Allergies No Known Allergies Allergy (Verified 03/21/24 13:50) HPI HPI Follow Up 03/08 CT: Details: Very pleasant 78-year-old gentleman presents for surveillance follow-up regarding central venous occlusive disease. He had actually been seen originally by [facility] and had not had any intervention after 3-4 visits. He subsequently had presented to me in upon workup it was discovered that he had more central occlusions.. He has had right and left venous iliac stenting back in February of 2022. After that he had been doing significantly better. Over the last few months he had reports recurrent difficulty ambulating. He almost describes symptoms venous claudication where he has bursting thigh pain after 10-15 feet. Does rest. His activity level has significantly decreased from what it was prior. His edema of the lower extremities has once again reappeared. Now presents to us for follow-up. [facility] Medical History S/P angiogram of extremity (03/04/22) GERD (gastroesophageal reflux disease) Hypertension Hypercholesteremia Dysrhythmias Diabetes History of DVT (deep vein thrombosis) Surgical History Hx of appendectomy Family History Father No problems noted. Mother No problems noted. Other No family history of cancer Social History Household Members: Spouse Housing: Apartment Are you a primary health care marketing manager to a significant other at home: No Do you presently have visiting nurse or other home services: No Alcohol intake: never Patient Tobacco Use Status: Former Tobacco user Tobacco use type: Cigarette service: No Current occupational status: retired Review of Systems Const Reports as per HPI ENT Reports no additional complaints Card Denies chest pain, Denies chest pain at rest and Denies chest pain with activity Resp Denies chest congestion and Denies cough GI Reports no additional complaints Musc Details: pain over varicosities, aching of lower extremities, swelling, cramping, heaviness and tiredness, itching Denies abnormal gait Skin/Breast Reports pruritus and Denies wounds Neuro Reports no additional complaints and Denies abnormal gait Psych Denies no additional complaints Physical Exam Vital Signs: BMI result Body Mass Index 33.6 Const General: cooperative, healthy appearing and comfortable Orientation/consciousness: oriented to person, oriented to place and oriented to time Neck Carotids: no bruits Chest Chest palpation & inspection: normal inspection of the chest and normal palpation of entire chest wall Resp Effort & Inspection: normal respiratory effort and able to speak in complete sentences Cardio Rate: regular rate Heart sounds: S1 normal heart sound present and S2 normal heart sound present Peripheral pulses: Peripheral pulses 2+ throughout GI Inspection: Yes normal to inspection Skin Other: +2 edema, CEAP Classification C 5-evidence of healed ulceration Ep - Etiology Primary As - superficial veins P - reflux General skin exam: dry skin Neuro General: oriented to person, oriented to place and oriented to time Extrem Right lower extremity: full ROM, normal capillary refill and edema Left lower extremity: full ROM, normal capillary refill and edema Psych Mental Status: mental status grossly normal Results Reviewed Results Reviewed: CT angiogram dated 03/08/2024 demonstrates bilateral venous stent occlusions. 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 Patient is on long-term anticoagulants. At the current time it has progressed. Unfortunately I think he may be better served at a tertiary care institution which may have better equipment for recannulization and IV us for optimal stent placement. This was discussed with the patient in detail and he is agreeable to transfer his care. I have reached out to several specialists with hopes to get him to the appropriate level of care. Thank you for allowing us to assist in his care. If there are any questions or concerns please do not hesitate to contact us. Please note a longitudinal relationship has been created with the patient and we have been following and surveillance this chronic condition. 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
== END 2024-03-21 14:07 | disposition home or self-care (01) ==
PROVIDERS: PCP Internal Medicine; Visit Provider Surgery Vascular Surgery
DX: I82.523 Chronic embolism and thrombosis of iliac vein, bilateral (principal)
CPT/HCPCS: 99214; G2211

== ENCOUNTER → 2024-03-21 13:43 | Outpatient (BNVA) | payer OTHER, SELFPAY | PROVIDERS: PCP Internal Medicine; Visit Provider Surgery Vascular Surgery | DX: I82.523 Chronic embolism and thrombosis of iliac vein, bilateral (principal) | CPT/HCPCS: 99212 ==